=== PATIENT | female | born 1960 | race Caucasian/White ===

== ENCOUNTER 2021-07-10 00:25 | Inpatient (IN) ==
[2021-07-10] MEDS ORDERED: 0.9 % SODIUM CHLORIDE 500 ML IV ONE (01:25)
[2021-07-10 01:48] LABS: Basophils # (Auto) 0.05 K/mcL (0.00-0.30); Eosinophils # (Auto) 0.15 K/mcL (0.00-0.70); Eosinophils % (Auto) 3.1 % (0.0-7.0); Hematocrit 37.9 % (34.1-44.9); Hemoglobin 13.1 g/dL (11.2-15.7); Lymphocytes # (Auto) 1.72 K/mcL (1.50-4.80); Lymphocytes % (Auto) 35.8 % (15.5-49.0); Mean Cell Volume 107.1 fL (80.0-100.0); Mean Corpuscular HGB Conc 34.6 g/dL (31.0-36.0); Monocytes % (Auto) 12.5 % (1.0-12.0); Neutrophils % (Auto) 47.6 % (38.0-78.0); Platelet Count 305 K/mcL (140-440); RBC 3.54 M/mcL (3.59-5.38); Red Cell Distribution Width 16.5 % (11.5-14.5); WBC 4.8 K/mcL (4.5-11.0)
[2021-07-10 03:07] LABS: Alcohol,Blood 0.238 gm/dL (<0.010)
[2021-07-10 03:08] LABS: Partial Thromboplastin Time 25.7 sec (20.0-37.0); Prothrombin Time 13.4 sec (11.9-14.5)
[2021-07-10 03:11] LABS: ALT/SGPT 35 U/L (<40); AST/SGOT 39 U/L (<32); Albumin 3.7 gm/dL (3.2-5.2); Albumin/Globulin Ratio 1.4 (1.0-2.3); Alkaline Phosphatase 191 U/L (39-117); Bilirubin,Total 0.2 mg/dL (0.1-1.0); Blood Urea Nitrogen 4 mg/dL (6-20); Calcium 8.9 mg/dL (8.6-10.4); Carbon Dioxide 25 mmol/L (22-30); Chloride 98 mmol/L (96-108); Globulin 2.7 gm/dL (2.2-3.7); Glomerular Filtration Rate 99; Glucose 106 mg/dL (70-105)
[2021-07-10] MEDS ORDERED: HYDROmorphone 0.5 MG/0.5 ML SYRINGE IV ONE (03:45)
--- NOTE | 2021-07-10 05:39 | Emergency Department Note ---
HPI General Chief complaint: Fall Stated complaint: fall Time Seen by Provider: 07/10/21 00:39 Source: patient Mode of arrival: ambulatory Limitations: no limitations History of Present Illness HPI Narrative: 61-year-old female who does have a history of metastatic lung cancer on Keytruda no blood thinners presents with fall while outside landing on her right hip. Did hit the back of her head however no loss of consciousness. 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 Denies headache visual changes dizziness. No neck low back pain. No numbness tingling focal weakness. No chest pain shortness of breath nausea vomiting abdominal pain. Has been drinking alcohol approximately 4 shots of vodka. Obvious deformity of the right hip shortening externally rotated. Friend is at bedside Related Data Home Medications Medication Instructions Recorded Confirmed albuterol sulfate 90 mcg/actuation 2 puff INHALATION Q4H PRN g 01/17/1912/29 aerosol inhaler (Ventolin HFA) acetaminophen 500 mg tablet 500 mg PO Q6H PRN 07/26/20 01/11/21 (Tylenol Extra Strength) omeprazole 20 mg capsule,delayed 20 mg PO BID 07/26/20 01/11/21 release ondansetron 8 mg disintegrating 8 mg PO Q8H 07/26/20 01/11/21 tablet pembrolizumab 50 mg intravenous 200 mg IV Q3W 11/22/20 01/11/21 solution Previous Rx's Medication Instructions Recorded hydrocodone 5 mg-acetaminophen 325 1 - 2 tab PO BID PRN #60 tab 11/22/20 mg tablet metoprolol succinate 25 mg 25 mg PO QDAY #90 tab 01/11/21 tablet,extended release 24 hr duloxetine 60 mg capsule,delayed 60 mg PO QDAY #90 cap 07/04/21 release Allergies Allergy/AdvReac Type Severity Reaction Status Date / Time codeine Allergy Unknown Unknown Verified 07/10/21 00:32 Review of Systems ROS ROS Narrative: 10 point review of system is otherwise negative except as mentioned in HPI. PFSH Narrative Patient History Narrative: Narrative: Medical/Surgical/Family History All Active Problems (Updated 01/13/21 @ 08:51 by JERICHO Barron) Sinus tachycardia (Acute) Back pain (Acute) History of lobectomy of lung (Chronic) History of breast biopsy (Chronic) Lung cancer (Chronic) Headache (Chronic) Fatigue (Chronic) Hypertension (Chronic) Smoker (Chronic) GERD (gastroesophageal reflux disease) (Chronic) Adenocarcinoma, lung (Chronic) Hyperlipidemia (Chronic) Postmenopausal (Chronic) Hemangioma (Chronic) Alcohol consumption heavy (Chronic) Mass (Chronic) Atherosclerosis of coronary artery (Chronic) COPD (chronic obstructive pulmonary disease) (Chronic) Medical History Adenocarcinoma, lung Alcohol consumption heavy Atherosclerosis of coronary artery COPD (chronic obstructive pulmonary disease) Fatigue GERD (gastroesophageal reflux disease) Headache Heart palpitations Hemangioma Hyperlipidemia Hypertension 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 Grandmother Pancreatic cancer Maternal Grandfather Heart disease Maternal Social History Smoking Status: Current every day smoker Alcohol Intake Frequency: a few times a week Substance Use: does not use Exam Narrative Narrative: (Please note that portions of this note may have been completed with a voice recognition program. Efforts were made to edit the dictations but occasionally words are mis-transcribed) CONSTITUTIONAL: thin adult female weight 100 pound. Resting comfortably. Not in acute distress. Non toxic. Awake alert and oriented x3. Cooperative, follows commands. HEAD: Normocephalic. Atraumatic. EYES: EOMI. PERRL ENT: No drooling stridor. MM dry. Angioma of the left lip lower lip and left tongue NECK: Supple. Full range of motion. Trachea midline CARDIOVASCULAR: Adequate peripheral perfusion. S1-S2. Regular rate and rhythm. No murmurs rubs gallops. No JVD. No lower extremity edema. +2 radial pulses bilaterally. PULMONARY: Nonlabored. Speaking full sentences. Clear to auscultation bilaterally. No rhonchi wheeze or crackles. No chest wall tenderness crepitus ABDOMINAL: Soft. Nondistended. Nontender. Positive bowel sounds. EXTREMITIES: Obvious deformity of the right hip slightly shortened externally rotated. +2 femoral DP pulses bilaterally moves all 4 extremities with good strength and tone. SKIN: Warm and dry. No rash. No petechiae. NEUROLOGY: Sensation is intact. No gross focal deficits. GCS of 15 General Limitations: no limitations Course Vital Signs Vital signs: Vital Signs Temperature 36.6 C 07/10/21 00:26 Pulse Rate 80 07/10/21 00:26 Respiratory Rate 18 07/10/21 00:26 Blood Pressure 140/91 07/10/21 00:26 Pulse Oximetry (%) 100 07/10/21 00:26 Temperature 36.6 C 07/10/21 00:26 Pulse Rate 97 H 07/10/21 05:42 Respiratory Rate 16 07/10/21 03:35 Blood Pressure 139/82 07/10/21 06:31 Pulse Oximetry (%) 97 07/10/21 05:42 MDM MDM Narrative Medical decision making narrative: Differential diagnosis includes fracture-dislocation neurovascular tendon injury etc. X-rays were immediately obtained at bedside. Pelvic right hip x-ray does show a right intertrochanteric fracture. And so x-ray of the femur knee was obtained negative for acute fracture. NPO. IV pain control. Church catheter. Preop labs chest x-ray EKG were obtained. CT head C-spine secondary to the fall EtOH and brain mets was obtained. And per V rad negative for acute traumatic injury. Twelve-lead EKG per ED MD interpretation does show normal sinus rhythm at 90 bpm. Normal axis. No ST elevations or depressions. No T wave abnormalities. No ectopy. Normal intervals. No old EKG. Chest x-ray per ED MD interpretation shows no acute process, lesion noted in the right medial upper lobe. Labs unremarkable except for an alcohol level of 238. Chronically elevated LFTs. Updated patient and family at bedside and results clinical impressions treatment plan. Will admit questions have been answered at length agreeable. I did speak to orthopedics in the morning at 5:[address] Weaver. Agreeable to consult. Dr. Multani has been paged. Was given report. Secondary to the complex nature of patient's past medical history, he will speak to the anesthesiologist and confirm that they are comfortable managing this patient in the OR. I did speak to Dr. Weaver again and he will evaluate the patient in the emergency room and discuss plan with Dr. Multani. If it is deemed that the patient requires higher level of care oncoming physician will facilitate transfer Final impressions: 1. Acute right intertrochanteric fracture 2. Alcohol intoxication 3. Known metastatic lung cancer on Keytruda Dispo: admit condition:fair Lab Data Result diagrams: 07/10/21 00:50 07/10/21 00:50 Labs: Lab Results 07/10/21 07/10/21 07/10/21 Range/Units 00:50 00:50 00:50 WBC 4.8 (4.5-11.0) K/mcL RBC 3.54 L (3.59-5.38) M/mcL Hgb 13.1 (11.2-15.7) g/dL Hct 37.9 (34.1-44.9) % MCV 107.1 H (80.0-100.0) fL MCH 37.0 H (26.0-34.0) pg MCHC 34.6 (31.0-36.0) g/dL RDW 16.5 H (11.5-14.5) % Plt Count 305 (140-440) K/mcL MPV 10.0 (7.4-10.4) fL Neut % (Auto) 47.6 (38.0-78.0) % Lymph % (Auto) 35.8 (15.5-49.0) % [place] % (Auto) 12.5 H (1.0-12.0) % Eos % (Auto) 3.1 (0.0-7.0) % Baso % (Auto) 1.0 (0.0-2.0) % Lymph # (Auto) 1.72 (1.50-4.80) K/mcL [place] # (Auto) 0.60 (0.10-0.90) K/mcL Eos # (Auto) 0.15 (0.00-0.70) K/mcL Baso # (Auto) 0.05 (0.00-0.30) K/mcL Absolute Neutrophils 2.29 (1.80-8.00) K/mcL PT 13.4 (11.9-14.5) sec INR 1.0 (0.9-1.1) APTT 25.7 (20.0-37.0) sec Sodium 135 (133-145) mmol/L Potassium 3.6 (3.3-5.1) mmol/L Chloride 98 (96-108) mmol/L Carbon Dioxide 25 (22-30) mmol/L Anion Gap 12.0 (8.0-16.0) BUN 4 L (6-20) mg/dL Creatinine 0.6 (0.6-1.1) mg/dL GFR Calculation 99 Glucose 106 H (70-105) mg/dL Calcium 8.9 (8.6-10.4) mg/dL Magnesium 1.6 (1.6-2.5) mg/dL Total Bilirubin 0.2 (0.1-1.0) mg/dL AST 39 H (<32) U/L ALT 35 (<40) U/L Alkaline Phosphatase 191 H (39-117) U/L Total Protein 6.4 (5.9-8.4) gm/dL Albumin 3.7 (3.2-5.2) gm/dL Globulin 2.7 (2.2-3.7) gm/dL Albumin/Globulin Ratio 1.4 (1.0-2.3) Ethyl Alcohol (<0.010) gm/dL 07/10/21 Range/Units 00:50 WBC (4.5-11.0) K/mcL RBC (3.59-5.38) M/mcL Hgb (11.2-15.7) g/dL Hct (34.1-44.9) % MCV (80.0-100.0) fL MCH (26.0-34.0) pg MCHC (31.0-36.0) g/dL RDW (11.5-14.5) % Plt Count (140-440) K/mcL MPV (7.4-10.4) fL Neut % (Auto) (38.0-78.0) % Lymph % (Auto) (15.5-49.0) % [place] % (Auto) (1.0-12.0) % Eos % (Auto) (0.0-7.0) % Baso % (Auto) (0.0-2.0) % Lymph # (Auto) (1.50-4.80) K/mcL [place] # (Auto) (0.10-0.90) K/mcL Eos # (Auto) (0.00-0.70) K/mcL Baso # (Auto) (0.00-0.30) K/mcL Absolute Neutrophils (1.80-8.00) K/mcL PT (11.9-14.5) sec INR (0.9-1.1) APTT (20.0-37.0) sec Sodium (133-145) mmol/L Potassium (3.3-5.1) mmol/L Chloride (96-108) mmol/L Carbon Dioxide (22-30) mmol/L Anion Gap (8.0-16.0) BUN (6-20) mg/dL Creatinine (0.6-1.1) mg/dL GFR Calculation Glucose (70-105) mg/dL Calcium (8.6-10.4) mg/dL Magnesium (1.6-2.5) mg/dL Total Bilirubin (0.1-1.0) mg/dL AST (<32) U/L ALT (<40) U/L Alkaline Phosphatase (39-117) U/L Total Protein (5.9-8.4) gm/dL Albumin (3.2-5.2) gm/dL Globulin (2.2-3.7) gm/dL Albumin/Globulin Ratio (1.0-2.3) Ethyl Alcohol 0.238 H (<0.010) gm/dL ED POC Tests ED POC Tests: JOSI - SARS Antigen Negative Discharge Plan Patient/Caregiver Discharge Instructions Pt seen by SENIOR COMPLIANCE OFFICER/PA only: No Patient Disposition: Xfer As Inpt ([facility]) Condition: Fair Follow up with: Cecilia Calderon ARNP [Primary Care Provider] - Prescriptions: No Action omeprazole 20 mg capsule,delayed release(DR/EC) 20 mg PO BID 0RF acetaminophen [Tylenol Extra Strength] 500 mg tablet 500 mg PO Q6H PRN0RF ondansetron 8 mg tablet,disintegrating 8 mg PO Q8H 0RF duloxetine 60 mg capsule,delayed release(DR/EC) 60 mg PO QDAY Qty: 90 1RF albuterol sulfate [Ventolin HFA] 90 mcg/actuation HFA aerosol inhaler 2 puff INHALATION Q4H PRN0RF metoprolol succinate 25 mg tablet extended release 24 hr 25 mg PO QDAY Qty: 90 1RF pembrolizumab 50 mg recon soln 200 mg IV Q3W 0RF Rx Instructions: administer over 30 mins hydrocodone-acetaminophen 5-325 mg tablet 1 - 2 tab PO BID PRN (Reason: pain) Qty: 60 0RF
--- NOTE | 2021-07-10 06:19 | XRay Report ---
CLINICAL INFORMATION: Trauma COMPARISON: None. FINDINGS: Patellofemoral and tibiofemoral joint spaces show mild degeneration. No effusions are present. There are no fractures or other osseous abnormalities. The soft tissues are normal. IMPRESSION: Mild degeneration. No fracture Interpreted and Authenticated by: Juan Jose Olivia 07/10/21
--- NOTE | 2021-07-10 06:24 | XRay Report ---
CLINICAL INFORMATION: Trauma COMPARISON: None. FINDINGS: Sacroiliac and hip joints are normal in width and alignment without arthritic change. Mildly comminuted acute right intertrochanteric fracture appreciated with moderate coxa vera angulation and mild impaction. Mild soft tissue swelling over the fracture site noted. IMPRESSION: Mildly comminuted acute right intratrochanteric fracture with coxa vera angulation Interpreted and Authenticated by: Juan Jose Olivia 07/10/21
--- NOTE | 2021-07-10 06:30 | XRay Report ---
CLINICAL INFORMATION: Cough COMPARISON: 04/05/[address] plain film. Recent chest CT 06/27/2021 TECHNIQUE: Portable FINDINGS: The heart size, mediastinum and pulmonary vessels are unremarkable. 20 mm cavitary lesion in the right suprahilar region, described on recent chest CT, is unchanged.. It is most likely fibrosis. Minor fibrosis left lateral base unchanged.. There are no effusions. The bones and soft tissues are within normal limits. IMPRESSION: No acute disease. 20 mm irregular cavity, in the suprahilar right upper lobe, is unchanged from the most recent chest CT just two weeks ago. This could potentially represent recurrent malignancy. PET/CT was recommended for additional evaluation at that time. Interpreted and Authenticated by: Juan Jose Olivia 07/10/21
--- NOTE | 2021-07-10 06:38 | Cat Scan Report ---
CLINICAL INFORMATION: Trauma. History of alcohol use. COMPARISON: Brain MRI two weeks prior: 06/19/2021 TECHNIQUE: 2.5 mm helical slices were obtained in the skull base to vertex. Following reconstruction, axial reformatted images were reviewed at bone and parenchymal windows. The exam was performed using radiation dose optimization techniques including, but not limited to, automated exposure control, adjustment of the mA and/or kV according to patient size and use of iterative reconstruction technique. FINDINGS: The ventricles, sulci, fissures, and cisterns are symmetrically enlarged compatible with mild age-related atrophy. No extra-axial fluid collections are identified. Mild patchy chronic ischemic changes, in the deep cerebral white matter, are more than expected for age. There is no hemorrhage, mass effect, or edema. Bone windows show no osseous abnormality. IMPRESSION: Mild atrophy and chronic ischemic changes in the deep cerebral white-more than expected for age. No acute findings. Interpreted and Authenticated by: Juan Jose Olivia 07/10/21
[2021-07-10] MEDS ORDERED: HYDROmorphone 0.5 MG/0.5 ML SYRINGE IV PRN ×3 (07:01→12:27)
--- NOTE | 2021-07-10 07:14 | Cat Scan Report ---
CLINICAL INFORMATION: Trauma. History of lung cancer COMPARISON: None. TECHNIQUE: 0.625 mm helical slices were obtained from the skull base through the superior T2 end plate, and following reconstruction, 2.5 mm sagittal, coronal and axial reformations were then processed. The exam was reviewed at bone and soft tissue windows. The exam was performed using radiation dose optimization techniques including, but not limited to, automated exposure control, adjustment of the mA and/or kV according to patient size and use of iterative reconstruction technique. FINDINGS: Sagittal reformatted images show the cervical spine is anatomically aligned. There is no fracture, metastases or other osseous abnormality. The cervical cord is normal in contour and caliber without hemorrhage or other abnormality. Images through the lung again show a 2.1 cm cavity in the right upper lobe with mild wall thickening and stellate surrounding fibrosis. It is more likely benign fibrosis rather than recurrent lung carcinoma. There is also scattered interstitial fibrosis in the paramediastinal right apex and mild centrilobular emphysema changes. A 9 mm low-attenuation lesion in the right thyroid lobe is likely a colloid cyst. At C2-3, and C3-4, small broad central disc protrusion mildly impinges the anterior thecal sac. At C4-5, moderate broad disc protrusion with left-sided asymmetry narrows the left lateral recess. This may impinge the exiting left C5 nerve root. Mild central canal narrowing At C5-6, large broad disc spur complex results in severe central canal, moderate left and mild right IV foraminal narrowing. There may be impingement of the exiting left C6 nerve root The C6-7 and C7-T1 disc levels are normal IMPRESSION: No fracture or posttraumatic change. Multilevel degeneration 2.1 cm cavity in the right upper lobe with a thin wall but spiculated margins. While this may represent recurrent malignancy, is more likely benign fibrosis. CT PET recommended. Interpreted and Authenticated by: Juan Jose Olivia 07/10/21
--- NOTE | 2021-07-10 07:16 | Emergency Department Note ---
HPI General Chief complaint: Fall Stated complaint: fall Time Seen by Provider: 07/10/21 00:39 Source: patient Mode of arrival: ambulatory Limitations: no limitations History of Present Illness HPI Narrative: This patient was signed out to me at shift change by Dr. Ileana Grier. Please see her documentation for complete details of the history, physical exam, assessment and plan. Narrative: Related Data Home Medications Medication Instructions Recorded Confirmed albuterol sulfate 90 mcg/actuation 2 puff INHALATION Q4H PRN g 01/17/1912/29 aerosol inhaler (Ventolin HFA) acetaminophen 500 mg tablet 500 mg PO Q6H PRN 07/26/20 01/11/21 (Tylenol Extra Strength) omeprazole 20 mg capsule,delayed 20 mg PO BID 07/26/20 01/11/21 release ondansetron 8 mg disintegrating 8 mg PO Q8H 07/26/20 01/11/21 tablet pembrolizumab 50 mg intravenous 200 mg IV Q3W 11/22/20 01/11/21 solution Previous Rx's Medication Instructions Recorded hydrocodone 5 mg-acetaminophen 325 1 - 2 tab PO BID PRN #60 tab 11/22/20 mg tablet metoprolol succinate 25 mg 25 mg PO QDAY #90 tab 01/11/21 tablet,extended release 24 hr duloxetine 60 mg capsule,delayed 60 mg PO QDAY #90 cap 07/04/21 release Allergies Allergy/AdvReac Type Severity Reaction Status Date / Time codeine Allergy Unknown Unknown Verified 07/10/21 00:32 Review of Systems ROS ROS Narrative: Narrative: All systems ED: reviewed and negative except as stated. [facility] Narrative Patient History Narrative: Narrative: Medical/Surgical/Family History All Active Problems (Updated 07/10/21 @ 07:20 by Westley Waite DO) Closed fracture of right hip (Acute) Sinus tachycardia (Acute) Back pain (Acute) History of lobectomy of lung (Chronic) History of breast biopsy (Chronic) Lung cancer (Chronic) Headache (Chronic) Fatigue (Chronic) Hypertension (Chronic) Smoker (Chronic) GERD (gastroesophageal reflux disease) (Chronic) Adenocarcinoma, lung (Chronic) Hyperlipidemia (Chronic) Postmenopausal (Chronic) Hemangioma (Chronic) Alcohol consumption heavy (Chronic) Mass (Chronic) Atherosclerosis of coronary artery (Chronic) COPD (chronic obstructive pulmonary disease) (Chronic) Medical History Adenocarcinoma, lung Alcohol consumption heavy Atherosclerosis of coronary artery COPD (chronic obstructive pulmonary disease) Fatigue GERD (gastroesophageal reflux disease) Headache Heart palpitations Hemangioma Hyperlipidemia Hypertension 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 Grandmother Pancreatic cancer Maternal Grandfather Heart disease Maternal Social History Smoking Status: Current every day smoker Alcohol Intake Frequency: a few times a week Substance Use: does not use Exam Narrative Narrative: Narrative:This patient was signed out to me at shift change by Dr. Ileana Grier. Please see her documentation for complete details of the history, physical exam, assessment and plan. General Limitations: no limitations Course Course Course Narrative: This patient was signed out to me at shift change by Dr. Ileana Grier. Please see her documentation for complete details of the history, physical exam, assessment and plan. Vital Signs Vital signs: Vital Signs Temperature 97.9 F 07/10/21 00:26 Pulse Rate 80 07/10/21 00:26 Respiratory Rate 18 07/10/21 00:26 Blood Pressure 140/91 07/10/21 00:26 Pulse Oximetry (%) 100 07/10/21 00:26 Temperature 97.9 F 07/10/21 00:26 Pulse Rate 97 H 07/10/21 05:42 Respiratory Rate 16 07/10/21 03:35 Blood Pressure 142/93 07/10/21 07:01 Pulse Oximetry (%) 97 07/10/21 05:42 MDM MDM Narrative Medical decision making narrative: Narrative:This patient was signed out to me at shift change by Dr. Ileana Grier. Please see her documentation for complete details of the history, physical exam, assessment and plan. Lab Data Result diagrams: 07/10/21 00:50 07/10/21 00:50 Labs: Lab Results 07/10/21 07/10/21 07/10/21 Range/Units 00:50 00:50 00:50 WBC 4.8 (4.5-11.0) K/mcL RBC 3.54 L (3.59-5.38) M/mcL Hgb 13.1 (11.2-15.7) g/dL Hct 37.9 (34.1-44.9) % MCV 107.1 H (80.0-100.0) fL MCH 37.0 H (26.0-34.0) pg MCHC 34.6 (31.0-36.0) g/dL RDW 16.5 H (11.5-14.5) % Plt Count 305 (140-440) K/mcL MPV 10.0 (7.4-10.4) fL Neut % (Auto) 47.6 (38.0-78.0) % Lymph % (Auto) 35.8 (15.5-49.0) % [place] % (Auto) 12.5 H (1.0-12.0) % Eos % (Auto) 3.1 (0.0-7.0) % Baso % (Auto) 1.0 (0.0-2.0) % Lymph # (Auto) 1.72 (1.50-4.80) K/mcL [place] # (Auto) 0.60 (0.10-0.90) K/mcL Eos # (Auto) 0.15 (0.00-0.70) K/mcL Baso # (Auto) 0.05 (0.00-0.30) K/mcL Absolute Neutrophils 2.29 (1.80-8.00) K/mcL PT 13.4 (11.9-14.5) sec INR 1.0 (0.9-1.1) APTT 25.7 (20.0-37.0) sec Sodium 135 (133-145) mmol/L Potassium 3.6 (3.3-5.1) mmol/L Chloride 98 (96-108) mmol/L Carbon Dioxide 25 (22-30) mmol/L Anion Gap 12.0 (8.0-16.0) BUN 4 L (6-20) mg/dL Creatinine 0.6 (0.6-1.1) mg/dL GFR Calculation 99 Glucose 106 H (70-105) mg/dL Calcium 8.9 (8.6-10.4) mg/dL Magnesium 1.6 (1.6-2.5) mg/dL Total Bilirubin 0.2 (0.1-1.0) mg/dL AST 39 H (<32) U/L ALT 35 (<40) U/L Alkaline Phosphatase 191 H (39-117) U/L Total Protein 6.4 (5.9-8.4) gm/dL Albumin 3.7 (3.2-5.2) gm/dL Globulin 2.7 (2.2-3.7) gm/dL Albumin/Globulin Ratio 1.4 (1.0-2.3) Ethyl Alcohol (<0.010) gm/dL 07/10/21 Range/Units 00:50 WBC (4.5-11.0) K/mcL RBC (3.59-5.38) M/mcL Hgb (11.2-15.7) g/dL Hct (34.1-44.9) % MCV (80.0-100.0) fL MCH (26.0-34.0) pg MCHC (31.0-36.0) g/dL RDW (11.5-14.5) % Plt Count (140-440) K/mcL MPV (7.4-10.4) fL Neut % (Auto) (38.0-78.0) % Lymph % (Auto) (15.5-49.0) % [place] % (Auto) (1.0-12.0) % Eos % (Auto) (0.0-7.0) % Baso % (Auto) (0.0-2.0) % Lymph # (Auto) (1.50-4.80) K/mcL [place] # (Auto) (0.10-0.90) K/mcL Eos # (Auto) (0.00-0.70) K/mcL Baso # (Auto) (0.00-0.30) K/mcL Absolute Neutrophils (1.80-8.00) K/mcL PT (11.9-14.5) sec INR (0.9-1.1) APTT (20.0-37.0) sec Sodium (133-145) mmol/L Potassium (3.3-5.1) mmol/L Chloride (96-108) mmol/L Carbon Dioxide (22-30) mmol/L Anion Gap (8.0-16.0) BUN (6-20) mg/dL Creatinine (0.6-1.1) mg/dL GFR Calculation Glucose (70-105) mg/dL Calcium (8.6-10.4) mg/dL Magnesium (1.6-2.5) mg/dL Total Bilirubin (0.1-1.0) mg/dL AST (<32) U/L ALT (<40) U/L Alkaline Phosphatase (39-117) U/L Total Protein (5.9-8.4) gm/dL Albumin (3.2-5.2) gm/dL Globulin (2.2-3.7) gm/dL Albumin/Globulin Ratio (1.0-2.3) Ethyl Alcohol 0.238 H (<0.010) gm/dL ED POC Tests ED POC Tests: JOSI - SARS Antigen Negative Discharge Plan Patient/Caregiver Discharge Instructions Pt seen by SENIOR RECRUITER/PA only: No Clinical Impression: Closed fracture of right hip Patient Disposition: Xfer As Inpt ([facility]) Condition: Fair Follow up with: Cecilia Calderon ARNP [Primary Care Provider] - Prescriptions: No Action omeprazole 20 mg capsule,delayed release(DR/EC) 20 mg PO BID 0RF acetaminophen [Tylenol Extra Strength] 500 mg tablet 500 mg PO Q6H PRN0RF ondansetron 8 mg tablet,disintegrating 8 mg PO Q8H 0RF duloxetine 60 mg capsule,delayed release(DR/EC) 60 mg PO QDAY Qty: 90 1RF albuterol sulfate [Ventolin HFA] 90 mcg/actuation HFA aerosol inhaler 2 puff INHALATION Q4H PRN0RF metoprolol succinate 25 mg tablet extended release 24 hr 25 mg PO QDAY Qty: 90 1RF pembrolizumab 50 mg recon soln 200 mg IV Q3W 0RF Rx Instructions: administer over 30 mins hydrocodone-acetaminophen 5-325 mg tablet 1 - 2 tab PO BID PRN (Reason: pain) Qty: 60 0RF
--- NOTE | 2021-07-10 08:48 | Internal Med History&Physical ---
HPI History of Present Illness Patient information: Note initiated : 07/10/21 at 8:41 am Service Date, if different from initiated Date: [] Patient: Lyndsay Gonzalez a 61 y/o F admitted on for fall. Chief Complaint: [] History of present illness: Ms. Gonzalez is a 61 year old female with a history of lung cancer status post chemotherapy and right bilobectomy complicated by metastasis to the brain, adrenal glands currently treated with palliative pembrolizumab, coronary artery disease, COPD, GERD, alcohol use disorder, tobacco use disorder who had a fall and suffered a right hip fracture. Hospital medicine has been consulted for admission, orthopedic surgery Dr. Weaver plans to proceed with surgical correction of the hip fracture. We discussed the usual clinical course for hip fracture with specific mention of her medical comorbidities that may complicate the hospitalization. Patient understands and wishes to proceed with surgery. We discussed CODE STATUS, the patient wishes to be DNR/DNI. Review of systems Constitutional: no fever, fatigue, or weight loss Eyes: no vision changes or pain Cardiovascular: no chest pain, no palpitations Respiratory: no cough or dyspnea Gastrointestinal: no abdominal pain, no nausea, vomiting, or diarrhea Genitourinary: no dysuria or difficulty voiding Musculoskeletal: Right hip pain following fall. Integumentary: no skin lesion or wound Neurological: no focal weakness or numbness Psychiatric: no anxiety or depression Physical exam Head: Atraumatic, normal inspection. Eyes: normal appearance, no scleral icterus. Neck: full ROM Respiratory: no respiratory distress. Cardiovascular: normal rate and rhythm, S1, S2. GI/Abdominal: soft, nontender, no guarding. Extremities: Right lower extremity externally rotated, shorter than left lower extremity consistent with right hip fracture. Neurological: CN II-XII intact, intact motor, intact sensation. Psychiatric: normal mood. Skin: warm, normal color PFSH PFSH All Active Problems (Updated 07/10/21 @ 07:20 by Westley Waite DO) Closed fracture of right hip (Acute) Sinus tachycardia (Acute) Back pain (Acute) History of lobectomy of lung (Chronic) History of breast biopsy (Chronic) Lung cancer (Chronic) Headache (Chronic) Fatigue (Chronic) Hypertension (Chronic) Smoker (Chronic) GERD (gastroesophageal reflux disease) (Chronic) Adenocarcinoma, lung (Chronic) Hyperlipidemia (Chronic) Postmenopausal (Chronic) Hemangioma (Chronic) Alcohol consumption heavy (Chronic) Mass (Chronic) Atherosclerosis of coronary artery (Chronic) COPD (chronic obstructive pulmonary disease) (Chronic) Medical History Adenocarcinoma, lung Alcohol consumption heavy Atherosclerosis of coronary artery COPD (chronic obstructive pulmonary disease) Fatigue GERD (gastroesophageal reflux disease) Headache Heart palpitations Hemangioma Hyperlipidemia Hypertension 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 activity: other frequency: 3-4 times per week alcohol intake frequency: a few times a week substance use type: does not use MEDS/ALLERGIES Home Medications and Allergies Home Medications Medication Instructions Recorded Confirmed Type albuterol sulfate 90 mcg/actuation 2 puff INHALATION Q4H PRN g 01/17/19 07/10/21 History aerosol inhaler (Ventolin HFA) acetaminophen 500 mg tablet 500 mg PO Q6H PRN 07/26/20 07/10/21 History (Tylenol Extra Strength) omeprazole 20 mg capsule,delayed 20 mg PO BID 07/26/20 07/10/21 History release ondansetron 8 mg disintegrating 8 mg PO Q8H 07/26/20 07/10/21 History tablet hydrocodone 5 mg-acetaminophen 325 1 - 2 tab PO BID PRN #60 tab 11/22/20 07/10/21 Rx mg tablet pembrolizumab 50 mg intravenous 200 mg IV Q3W 11/22/20 07/10/21 History solution metoprolol succinate 25 mg 25 mg PO QDAY #90 tab 01/11/21 07/10/21 Rx tablet,extended release 24 hr duloxetine 60 mg capsule,delayed 60 mg PO QDAY #90 cap 07/04/21 07/10/21 Rx release Allergies Allergy/AdvReac Type Severity Reaction Status Date / Time No Known Drug Allergies Allergy Unverified 07/10/21 07:23 EXAM Constitutional Vitals: Temp Pulse Resp BP Pulse Ox 97.9 F 97 H 16 147/84 97 07/10/21 00:26 07/10/21 05:42 07/10/21 03:35 07/10/21 08:31 07/10/21 05:42 DATA Data Completed and Pending Labs: Labs from last 24 hours 07/10/21 07/10/21 07/10/21 00:50 00:50 00:50 WBC RBC Hgb Hct MCV MCH MCHC RDW Plt Count MPV Neut % (Auto) Lymph % (Auto) [place] % (Auto) Eos % (Auto) Baso % (Auto) Lymph # (Auto) [place] # (Auto) Eos # (Auto) Baso # (Auto) Absolute Neutrophils PT 13.4 INR 1.0 APTT 25.7 Sodium 135 Potassium 3.6 Chloride 98 Carbon Dioxide 25 Anion Gap 12.0 BUN 4 L Creatinine 0.6 GFR Calculation 99 Glucose 106 H Calcium 8.9 Magnesium 1.6 Total Bilirubin 0.2 AST 39 H ALT 35 Alkaline Phosphatase 191 H Total Protein 6.4 Albumin 3.7 Globulin 2.7 Albumin/Globulin Ratio 1.4 Ethyl Alcohol 0.238 H 07/10/21 00:50 WBC 4.8 RBC 3.54 L Hgb 13.1 Hct 37.9 MCV 107.1 H MCH 37.0 H MCHC 34.6 RDW 16.5 H Plt Count 305 MPV 10.0 Neut % (Auto) 47.6 Lymph % (Auto) 35.8 [place] % (Auto) 12.5 H Eos % (Auto) 3.1 Baso % (Auto) 1.0 Lymph # (Auto) 1.72 [place] # (Auto) 0.60 Eos # (Auto) 0.15 Baso # (Auto) 0.05 Absolute Neutrophils 2.29 PT INR APTT Sodium Potassium Chloride Carbon Dioxide Anion Gap BUN Creatinine GFR Calculation Glucose Calcium Magnesium Total Bilirubin AST ALT Alkaline Phosphatase Total Protein Albumin Globulin Albumin/Globulin Ratio Ethyl Alcohol A/P Narrative A/P Narrative: Assessment:61 year old female with a history of lung cancer status post chemotherapy and right bilobectomy complicated by metastasis to the brain, adrenal glands currently treated with palliative pembrolizumab, coronary artery disease, COPD, GERD, alcohol use disorder, tobacco use disorder who had a fall and suffered a right intratrochanteric femur fracture. #Right intratrochanteric femur fracture #COPD, stable #Coronary artery disease, stable #Alcohol use disorder #Tobacco use disorder #GERD #History of lung cancer status post right bilobectomy on palliative pembrolizumab Plan -Admit for surgical correction of right hip fracture. -Analgesics as needed. -IV fluid. -CIWA scoring to monitor for alcohol withdrawal. -N.p.o. pending surgery. -Home medication reconciliation, resume important meds. -PT consult. -DVT prophylaxis: Per surgery. -CODE STATUS: DNR/DNI -Disposition: TBD, probably SNF for rehab unless the patient recovers faster than expected. The patient lives alone and has multiple comorbidities mentioned above. Time Spent With Patient Time: Total time spent is greater than 50% in coordination of care (as documented) at patient's floor/unit and/or counseling patient:
[2021-07-10] MEDS ORDERED: ceFAZolin 2 GM in DEXTROSE 5% IN WATER 50 ML IV SCH (09:00)
--- NOTE | 2021-07-10 09:29 | EKG ---
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 : 1960 Requested By: Ileana Grier Order Number: [id number] Reading MD: Yong Sandoval Measurements Intervals [place] Rate: 90 P: 82 TX: 167 QRS: 52 QRSD: 91 T: 62 QT: 377 QTc: 462 Interpretive Statements Sinus rhythm Probable left atrial enlargement Electronically Signed On 07-10-2021 9:29:09 PDT by Yong Sandoval /store/M0/[id number]/[email or web address]/[id number].pdf
[2021-07-10] MEDS ORDERED: MAGNESIUM SULFATE 2 GM/50 ML BAG IV ONE (09:30)
[2021-07-10] MEDS ORDERED: MIDAZOLAM 5 MG/5 ML VIAL ONE (09:30)
[2021-07-10] MEDS ORDERED: GLYCOPYRROLATE 0.2 MG/ML VIAL IV ONE (09:30)
[2021-07-10] MEDS ORDERED: DEXAMETHASONE 10 MG/ML VIAL ONE (09:30)
[2021-07-10] MEDS ORDERED: KETAMINE 50 MG/ML Syringe (ANEST) IV ONE (09:30)
[2021-07-10] MEDS ORDERED: ONDANSETRON 4 MG/2 ML VIAL ONE (09:30)
[2021-07-10] MEDS ORDERED: TRANEXAMIC ACID 1,000 MG/10 ML VIAL ONE (09:30)
[2021-07-10] MEDS ORDERED: LIDOCAINE HCL/PF 100 MG/5 ML SYRINGE IV ONE (09:30)
[2021-07-10] MEDS ORDERED: fentaNYL 100 MCG/2 ML VIAL IV ONE (09:30)
[2021-07-10] MEDS ORDERED: PHENYLephrine 1 MG/10 ML SYRINGE (ANEST) ONE (09:30)
[2021-07-10] MEDS ORDERED: PROPOFOL 200 MG/20 ML VIAL IV ONE (09:30)
[2021-07-10] MEDS ORDERED: HYDROmorphone 1 MG/ML SYRINGE ONE (09:30)
[2021-07-10] MEDS ORDERED: METHOCARBAMOL 1,000 MG/10 ML VIAL IV PRN (09:55)
[2021-07-10] MEDS ORDERED: BENZOCAINE/MENTHOL 1 LOZENGE PO PRN ×2 (09:55→10:33)
[2021-07-10] MEDS ORDERED: ONDANSETRON 4 MG/2 ML VIAL IV PRN ×2 (09:55→12:27)
[2021-07-10] MEDS ORDERED: IPRATROPIUM/ALBUTEROL 3 ML AMPUL.NEB NEB PRN ×2 (09:55→14:47)
[2021-07-10] MEDS ORDERED: LACTATED RINGERS 250 ML IV PRN (09:55)
[2021-07-10] MEDS ORDERED: fentaNYL 100 MCG/2 ML VIAL IV PRN (09:55)
[2021-07-10] MEDS ORDERED: NALOXONE HCL 0.4 MG/ML VIAL IV PRN (09:55)
[2021-07-10] MEDS ORDERED: MEPERIDINE 25 MG/ML VIAL IV PRN (09:55)
[2021-07-10] MEDS ORDERED: LABETALOL 5 MG/ML ML IV PRN (09:55)
[2021-07-10] MEDS ORDERED: ACETAMINOPHEN 1,000 MG/100 ML BAG IV ONE (09:55)
[2021-07-10] MEDS ORDERED: METOPROLOL TARTRATE 5 MG/5 ML VIAL IV PRN (09:55)
[2021-07-10] MEDS ORDERED: LACTATED RINGERS 1,000 ML IV SCH ×2 (10:00→12:27)
--- NOTE | 2021-07-10 10:26 | Brief Operative Note ---
Brief Operative Note Date of procedure: 07/10/21 Pre-op diagnosis: hip fracture R Post-op diagnosis: same Procedure: ORIF gamma Grafts/Implants: Yes Anesthesia: GETA Complications: none Surgeon: Fly Weaver Director Hematology: Quynh Watts Estimated blood loss (cc): 200
[2021-07-10] MEDS ORDERED: POLYETHYLENE GLYCOL 3350 17 GM PACKET PO PRN (10:33)
[2021-07-10] MEDS ORDERED: FLEETS ADULT ENEMA PR PRN (10:33)
[2021-07-10] MEDS ORDERED: BISACODYL 10 MG SUPP.RECT PR PRN (10:33)
[2021-07-10] MEDS ORDERED: MAGNESIUM HYDROXIDE 30 ML ORAL.SUSP PO PRN (10:33)
[2021-07-10] MEDS ORDERED: ACETAMINOPHEN 325 MG TABLET PO PRN (12:27)
[2021-07-10] MEDS ORDERED: NICOTINE POLACRILEX 2 MG GUM CHEW/PARK PRN (12:27)
[2021-07-10] MEDS ORDERED: HYDROcodone/APAP 5/325MG TABLET PO PRN (12:27)
[2021-07-10] MEDS ORDERED: LACTULOSE 20 GM/30 ML ORAL.SOL PO PRN (12:27)
[2021-07-10] MEDS ORDERED: DOCUSATE SODIUM 100 MG CAPSULE PO SCH (12:27)
[2021-07-10] MEDS ORDERED: SENNOSIDES 1 TABLET PO PRN (12:27)
[2021-07-10] MEDS: 0.9 % SODIUM CHLORIDE 10 ML SYRINGE IV SCH ×2 (12:33→21:43)
[2021-07-10 13:21] LABS: Basophils # (Auto) 0.03 K/mcL (0.00-0.30); Basophils % (Auto) 0.3 % (0.0-2.0); Eosinophils # (Auto) 0.04 K/mcL (0.00-0.70); Eosinophils % (Auto) 0.3 % (0.0-7.0); Hemoglobin 13.3 g/dL (11.2-15.7); Lymphocytes # (Auto) 0.43 K/mcL (1.50-4.80); Lymphocytes % (Auto) 3.7 % (15.5-49.0); Mean Platelet Volume 10.2 fL (7.4-10.4); Monocytes # (Auto) 0.26 K/mcL (0.10-0.90); Monocytes % (Auto) 2.2 % (1.0-12.0); Neutrophils % (Auto) 93.5 % (38.0-78.0); Platelet Count 293 K/mcL (140-440); RBC 3.52 M/mcL (3.59-5.38); Red Cell Distribution Width 16.2 % (11.5-14.5); WBC 11.8 K/mcL (4.5-11.0)
[2021-07-10] MEDS: NICOTINE 21 MG PATCH TOPICAL SCH (13:42)
--- NOTE | 2021-07-10 13:45 | XRay Report ---
CLINICAL INFORMATION: ORIF right intertrochanteric fracture COMPARISON: None. FINDINGS: Digital images from the OR show right intertrochanteric fracture has been reduced to anatomic alignment and now transfixed by gamma nail. Right hip normal with alignment without arthritic change. IMPRESSION: ORIF intertrochanteric fracture of the right hip in anatomic alignment. Total fluoroscopy time one minute Interpreted and Authenticated by: Juan Jose Olivia 07/10/21
[2021-07-10 14:02] LABS: ALT/SGPT 33 U/L (<40); AST/SGOT 33 U/L (<32); Albumin 3.4 gm/dL (3.2-5.2); Albumin/Globulin Ratio 1.3 (1.0-2.3); Alkaline Phosphatase 203 U/L (39-117); Bilirubin,Direct < 0.2 mg/dL (0-0.3); Bilirubin,Total 0.3 mg/dL (0.1-1.0); Blood Urea Nitrogen 4 mg/dL (6-20); Calcium 8.1 mg/dL (8.6-10.4); Carbon Dioxide 24 mmol/L (22-30); Chloride 95 mmol/L (96-108); Globulin 2.6 gm/dL (2.2-3.7); Glomerular Filtration Rate 106; Glucose 114 mg/dL (70-105); Lactate Dehydrogenase 240 U/L (135-225); Phosphorous 3.4 mg/dL (2.5-4.5); Triglycerides 98 mg/dL (<150)
--- NOTE | 2021-07-10 14:48 | Internal Med Progress Note ---
SUBJECTIVE Subjective Patient information: Note initiated : 07/10/21 at 2:41 pm Service Date, if different from initiated Date: [] Patient: Lyndsay Gonzalez a 61 y/o F admitted on 07/10/21 for fall. Chief Complaint: [] Interval history: History of present illness: Ms. Gonzalez is a 61 year old female with a history of lung cancer status post chemotherapy and right bilobectomy complicated by metastasis to the brain, adrenal glands currently treated with palliative pembrolizumab, coronary artery disease, COPD, GERD, alcohol use disorder, tobacco use disorder who had a fall and suffered a right hip fracture. Hospital medicine has been consulted for a dmission, orthopedic surgery Dr. Weaver plans to proceed with surgical correction of the hip fracture. We discussed the usual clinical course for hip fracture with specific mention of her medical comorbidities that may complicate the hospitalization. Patient understands and wishes to proceed with surgery. We discussed CODE STATUS, the patient wishes to be DNR/DNI. 07/11 Constitutional Vitals: Vital Signs Temp Pulse Resp BP Pulse Ox 97.7 F 99 H 10 L 117/82 93 07/10/21 12:15 07/10/21 14:10 07/10/21 14:10 07/10/21 14:00 07/10/21 14:10 Period Temp Pulse Resp BP Sys/Soria Pulse Ox Last 24 Hr 97.7 F-98.8 F 70-114 10-30 113-177/79-108 90-100 Intake and Output 07/10/21 07/10/21 07/10/21 05:59 13:59 21:59 Intake Total 650 Balance 650 Weight Intake & Output: Intake & Output 07/10/21 07/10/21 07/10/21 05:59 13:59 21:59 Intake Total 650 Balance 650 Weight Intake: IV 650 Sodium Chloride 0.9% 500 ml @ 500 Wide Open IV BOLUS ONE Rx#: [id number] Ancef 2 gm In Dextrose 5% in 50 Water 50 ml @ 100 mls/hr IV PREOP CARRIE Rx#:[id number] Other: Urine Appearance Clear Uretheral ([facility]) Urine Color Bright Yellow Uretheral (Church) Urine Odor Uretheral (Church) Exam: General: Alert, Awake, No acute Distress, obese Eyes/N/T: EOMI, Head/Neck: neck supple, CV: RRR, No murmurs, Pulm: Clear b/l, no wheezing/rhonchi/rales Abd: soft, nontender, +BS x4 Ext: no clubbing/cyanosis/edema Neuro: Alert, no focal deficits, moves all extremities, Skin: warm/dry OBJ DATA Labs CBC & Chem 7: 07/10/21 12:40 07/10/21 12:40 Labs: Abnormal Lab Results 07/10/21 07/10/21 07/10/21 12:40 12:40 00:50 WBC 11.8 H RBC 3.52 L MCV 108.0 H MCH 37.8 H RDW 16.2 H Neut % (Auto) 93.5 H Lymph % (Auto) 3.7 L [place] % (Auto) Lymph # (Auto) 0.43 L Absolute Neutrophils 11.01 H Sodium 132 L Chloride 95 L BUN 4 L Creatinine 0.5 L Glucose 114 H Calcium 8.1 L GGT 157 H AST 33 H Alkaline Phosphatase 203 H Lactate Dehydrogenase 240 H Ethyl Alcohol 0.238 H 07/10/21 07/10/21 00:50 00:50 WBC RBC 3.54 L MCV 107.1 H MCH 37.0 H RDW 16.5 H Neut % (Auto) Lymph % (Auto) [place] % (Auto) 12.5 H Lymph # (Auto) Absolute Neutrophils Sodium Chloride BUN 4 L Creatinine Glucose 106 H Calcium GGT AST 39 H Alkaline Phosphatase 191 H Lactate Dehydrogenase Ethyl Alcohol Meds: Medications Acetaminophen (Acetaminophen 325 Mg Tablet) 650 mg PO Q6HP PRN; Protocol PRN Reason: Per Pain Protocol/Fever > 101 Hydrocodone Bitart/Acetaminophen (Hydrocodone/Apap 7.5/325mg Tablet) 0 tab PO Q4HP PRN; Protocol PRN Reason: Per Pain Protocol Aspirin (Aspirin 81 Mg Tab.Chew) 81 mg PO BID [facility] Bisacodyl (Bisacodyl 10 Mg Supp.Rect) 10 mg NV Q2-3DAYS PRN PRN Reason: Constipation Cefazolin Sodium (Cefazolin 1 Gm Vial) 2 gm IV Q8H [facility] Stop: 07/11/21 02:01 Docusate Sodium (Docusate Sodium 100 Mg Capsule) 100 mg PO BID [facility] Hydromorphone HCl (Hydromorphone 0.5 Mg/0.5 Ml Syringe) 0.5 mg IV Q2HP PRN; Protocol PRN Reason: Per Pain Protocol Lactated Ringer's (Lactated Ringers) 1,000 mls @ 75 mls/hr IV .[id number] [facility] Last Admin: 07/10/21 12:32 Dose: 75 mls/hr Documented by: Lactulose (Lactulose 20 Gm/30 Ml Oral.Mónica) 10 gm PO DAILYP PRN PRN Reason: Constipation Magnesium Hydroxide (Magnesium Hydroxide 30 Ml Oral.Susp) 30 ml PO BIDP PRN PRN Reason: Constipation Methocarbamol (Methocarbamol 750 Mg Tablet) 750 mg PO Q6HP PRN PRN Reason: Muscle Spasm Nicotine (Nicotine 21 Mg Patch) 21 mg TOPICAL DAILY@1000 [facility] Last Admin: 07/10/21 13:42 Dose: 21 mg Documented by: Nicotine Polacrilex (Nicotine Polacrilex 2 Mg Gum) 2 mg CHEW/PARK Q4HP PRN PRN Reason: nicotine withdrawal Ondansetron HCl (Ondansetron 4 Mg/2 Ml Vial) 4 mg IV Q4HP PRN; Protocol PRN Reason: Nausea And Vomiting Polyethylene Glycol (Polyethylene Glycol 3350 17 Gm Packet) 17 gm PO DAILYP PRN PRN Reason: Constipation Senna (Sennosides 1 Tablet) 2 tab PO HS [facility] Sodium Biphosphate/Sodium Phosphate (Fleets Adult Enema) 1 dose NV Q3-4DAYS PRN PRN Reason: Constipation Sodium Chloride (0.9 % Sodium Chloride 10 Ml Syringe) 10 ml IV Q8 [facility] Last Admin: 07/10/21 12:33 Dose: 10 ml Documented by: Throat Lozenges (Benzocaine/Menthol 1 Lozenge) 1 lozenge PO PRN PRN PRN Reason: Sore Throat A/P Narrative A/P Narrative: A: #Right intratrochanteric femur fracture: s/p ORIF (07/10) #COPD( ): stable #CAD: stable #Alcohol use disorder: #Tobacco use disorder: #GERD: #h/o Lung CA w/mets to brain s/p Right lobectomy on palliative pembrolizumab Plan: -Ortho following -Analgesics as needed -CIWA scoring to monitor for alcohol withdrawal. etoh with meal -Home medication reconciliation, resume important meds. -PT consult. -cont home BB -Smoking cessation counseling -ppx: Per surgery ASA bid / home ppi CODE STATUS: DNR/DNI Time Spent With Patient Time: Total time spent is greater than 50% in coordination of care (as documented) at patient's floor/unit and/or counseling patient:
[2021-07-10] MEDS: OMEPRAZOLE 20 MG CAPSULE PO SCH (17:04)
[2021-07-10] MEDS: HYDROCODONE/APAP 7.5/325MG TABLET PO PRN ×2 (17:05→21:42)
[2021-07-10] MEDS: ceFAZolin 1 GM VIAL IV SCH (17:05)
[2021-07-10] MEDS: ASPIRIN 81 MG TAB.CHEW PO SCH (21:42)
[2021-07-10] MEDS: SENNOSIDES 1 TABLET PO SCH (21:43)
[2021-07-10] MEDS: DOCUSATE SODIUM 100 MG CAPSULE PO SCH (21:43)
[2021-07-11] MEDS: ceFAZolin 1 GM VIAL IV SCH (02:22)
[2021-07-11] MEDS: METHOCARBAMOL 750 MG TABLET PO PRN ×3 (02:25→17:42)
[2021-07-11] MEDS: 0.9 % SODIUM CHLORIDE 10 ML SYRINGE IV SCH ×4 (05:58→20:13)
[2021-07-11 06:18] LABS: Basophils # (Auto) 0.01 K/mcL (0.00-0.30); Basophils % (Auto) 0.1 % (0.0-2.0); Eosinophils # (Auto) 0.01 K/mcL (0.00-0.70); Eosinophils % (Auto) 0.1 % (0.0-7.0); Hematocrit 31.7 % (34.1-44.9); Hemoglobin 10.7 g/dL (11.2-15.7); Lymphocytes # (Auto) 0.98 K/mcL (1.50-4.80); Lymphocytes % (Auto) 9.9 % (15.5-49.0); Mean Cell Volume 107.5 fL (80.0-100.0); Mean Corpuscular HGB Conc 33.8 g/dL (31.0-36.0); Mean Platelet Volume 10.6 fL (7.4-10.4); Monocytes # (Auto) 1.02 K/mcL (0.10-0.90); Monocytes % (Auto) 10.4 % (1.0-12.0); Neutrophils % (Auto) 79.5 % (38.0-78.0); Platelet Count 245 K/mcL (140-440); RBC 2.95 M/mcL (3.59-5.38); Red Cell Distribution Width 16.2 % (11.5-14.5); WBC 9.9 K/mcL (4.5-11.0)
[2021-07-11 06:29] LABS: Prothrombin Time 13.9 sec (11.9-14.5)
[2021-07-11 06:43] LABS: ALT/SGPT 23 U/L (<40); AST/SGOT 30 U/L (<32); Albumin 3.1 gm/dL (3.2-5.2); Albumin/Globulin Ratio 1.3 (1.0-2.3); Alkaline Phosphatase 169 U/L (39-117); Bilirubin,Direct < 0.2 mg/dL (0-0.3); Bilirubin,Total 0.4 mg/dL (0.1-1.0); Blood Urea Nitrogen 7 mg/dL (6-20); Calcium 8.4 mg/dL (8.6-10.4); Carbon Dioxide 28 mmol/L (22-30); Chloride 99 mmol/L (96-108); Globulin 2.4 gm/dL (2.2-3.7); Glomerular Filtration Rate 106; Glucose 108 mg/dL (70-105); Lactate Dehydrogenase 174 U/L (135-225); Phosphorous 2.6 mg/dL (2.5-4.5); Triglycerides 50 mg/dL (<150); Uric Acid 3.7 mg/dL (2.5-8.0)
[2021-07-11] MEDS: OMEPRAZOLE 20 MG CAPSULE PO SCH ×2 (07:07→17:38)
[2021-07-11] MEDS: HYDROCODONE/APAP 7.5/325MG TABLET PO PRN ×3 (07:10→19:47)
--- NOTE | 2021-07-11 07:13 | Consultation ---
DATE OF CONSULTATION: 07/10/2021 IDENTIFICATION: This is a 61-year-old female with chief complaint is that of right hip fracture. HISTORY: Ms Gonzalez sustained a fall last night. She had immediate pain, unable to bear weight. She was transported to [facility] where radiographs demonstrated a right intertrochanteric hip fracture, we were now called for further evaluation and management. The patient on presentation does complain of pain. She is awake and alert although she had been drinking with several shots of vodka. PAST MEDICAL HISTORY: Significant for metastatic lung cancer and COPD. PAST SURGICAL HISTORY: She had a previous lobectomy but otherwise not contributory to this present problem. MEDICATIONS: Include, 1. Albuterol. 2. Omeprazole. 3. Keytruda. ALLERGIES: CODEINE. REVIEW OF SYSTEMS: Generally, she has been healthy recently with no acute changes in past medical. PHYSICAL EXAMINATION: GENERAL: She is awake and alert. She is resting comfortably. HEAD: Atraumatic. EYES: Pupils are round and reactive. NECK: Supple without pain on range of motion. HEART: Regular. LUNGS: Clear. ABDOMEN: Benign. EXTREMITIES: Her right lower extremity is carefully positioned. Any motion does reproduce pain. She seems to be grossly without neurovascular deficit. IMAGING: Radiographs do demonstrate a fracture of the intertrochanteric region of right hip. IMPRESSION: Right hip fracture. PLAN: We will proceed with a reduction and internal fixation. The surgical risks, complications and limitations are discussed, she understands these well and wish to proceed. GDD:cande Job ID: [id number] Doc ID: [id number] Fly Weaver MD
--- NOTE | 2021-07-11 07:59 | Internal Med Progress Note ---
SUBJECTIVE Subjective Patient information: Note initiated : 07/11/21 at 7:57 am Service Date, if different from initiated Date: [] Patient: Lyndsay Gonzalez a 61 y/o F admitted on 07/10/21 for fall. Chief Complaint: [] Interval history: History of present illness: Ms. Gonzalez is a 61 year old female with a history of lung cancer status post chemotherapy and right bilobectomy complicated by metastasis to the brain, adrenal glands currently treated with palliative pembrolizumab, coronary artery disease, COPD, GERD, alcohol use disorder, tobacco use disorder who had a fall and suffered a right hip fracture. Hospital medicine has been consulted for a dmission, orthopedic surgery Dr. Weaver plans to proceed with surgical correction of the hip fracture. We discussed the usual clinical course for hip fracture with specific mention of her medical comorbidities that may complicate the hospitalization. Patient understands and wishes to proceed with surgery. We discussed CODE STATUS, the patient wishes to be DNR/DNI. 07/11 Poor sleep and headache but otherwise no new complaints overnight events. CIWA score quite low and patient did not want any alcohol with her dinner last night. Review of Systems: denies headache/fever/chills/nausea/vomiting/chest or abdominal pain/cough/dyspnea/diarrhea. Otherwise see above. Constitutional Vitals: Vital Signs Temp Pulse Resp BP Pulse Ox 97.5 F 105 H 18 161/87 94 07/11/21 04:00 07/11/21 06:00 07/11/21 06:00 07/11/21 06:00 07/11/21 06:00 Period Temp Pulse Resp BP Sys/Soria Pulse Ox Last 24 Hr 97.5 F-98.8 F 94-114 10-30 113-177/70-108 90-100 Intake and Output 07/10/21 07/11/21 07/11/21 21:59 05:59 13:59 Intake Total 1000 Output Total 575 850 Balance -575 150 Weight 44.86 kg Intake & Output: Intake & Output 07/10/21 07/11/21 07/11/21 21:59 05:59 13:59 Intake Total 1000 Output Total 575 850 Balance -575 150 Weight 44.86 kg Intake: IV 1000 Lactated Ringers 1,000 ml @ 75 1000 mls/hr IV .[id number] CARRIE Rx#: [id number] Output: Urine Catheter Amount 575 850 Other: Urine Appearance Clear Clear Urine Color Straw Dark Yellow Urine Odor Normal Exam: General: Alert, Awake, No acute Distress, obese Eyes/N/T: EOMI, Head/Neck: neck supple, CV: RRR, No murmurs, Pulm: Clear b/l, no wheezing/rhonchi/rales Abd: soft, nontender, +BS x4 Ext: no clubbing/cyanosis/edema Neuro: Alert, no focal deficits, moves all extremities, Skin: warm/dry OBJ DATA Labs CBC & Chem 7: 07/11/21 05:05 07/11/21 05:05 Labs: Abnormal Lab Results 07/11/21 07/11/21 07/10/21 05:05 05:05 12:40 WBC RBC 2.95 L Hgb 10.7 L Hct 31.7 L MCV 107.5 H MCH 36.3 H RDW 16.2 H MPV 10.6 H Neut % (Auto) 79.5 H Lymph % (Auto) 9.9 L Rankin % (Auto) Lymph # (Auto) 0.98 L Rankin # (Auto) 1.02 H Absolute Neutrophils Sodium 132 L Chloride 95 L BUN 4 L Creatinine 0.5 L 0.5 L Glucose 108 H 114 H Calcium 8.4 L 8.1 L GGT 123 H 157 H AST 33 H Alkaline Phosphatase 169 H 203 H Lactate Dehydrogenase 240 H Total Protein 5.5 L Albumin 3.1 L Ethyl Alcohol 07/10/21 07/10/21 07/10/21 12:40 00:50 00:50 WBC 11.8 H RBC 3.52 L Hgb Hct MCV 108.0 H MCH 37.8 H RDW 16.2 H MPV Neut % (Auto) 93.5 H Lymph % (Auto) 3.7 L Rankin % (Auto) Lymph # (Auto) 0.43 L Rankin # (Auto) Absolute Neutrophils 11.01 H Sodium Chloride BUN 4 L Creatinine Glucose 106 H Calcium GGT AST 39 H Alkaline Phosphatase 191 H Lactate Dehydrogenase Total Protein Albumin Ethyl Alcohol 0.238 H 07/10/21 00:50 WBC RBC 3.54 L Hgb Hct MCV 107.1 H MCH 37.0 H RDW 16.5 H MPV Neut % (Auto) Lymph % (Auto) Rankin % (Auto) 12.5 H Lymph # (Auto) Rankin # (Auto) Absolute Neutrophils Sodium Chloride BUN Creatinine Glucose Calcium GGT AST Alkaline Phosphatase Lactate Dehydrogenase Total Protein Albumin Ethyl Alcohol Meds: Medications Acetaminophen (Acetaminophen 325 Mg Tablet) 650 mg PO Q6HP PRN; Protocol PRN Reason: Per Pain Protocol/Fever > 101 Hydrocodone Bitart/Acetaminophen (Hydrocodone/Apap 7.5/325mg Tablet) 0 tab PO Q4HP PRN; Protocol PRN Reason: Per Pain Protocol Last Admin: 07/11/21 07:10 Dose: 1 tab Documented by: Albuterol/Ipratropium (Ipratropium/Albuterol 3 Ml Ampul.Neb) 3 ml NEB Q4HP PRN PRN Reason: Shortness Of Breath Aspirin (Aspirin 81 Mg Tab.Chew) 81 mg PO BID [facility] Last Admin: 07/10/21 21:42 Dose: 81 mg Documented by: Bisacodyl (Bisacodyl 10 Mg Supp.Rect) 10 mg AR Q2-3DAYS PRN PRN Reason: Constipation Docusate Sodium (Docusate Sodium 100 Mg Capsule) 100 mg PO BID [facility] Last Admin: 07/10/21 21:43 Dose: 100 mg Documented by: Duloxetine HCl (Duloxetine 30 Mg Capsule) 60 mg PO DAILY [facility] Hydromorphone HCl (Hydromorphone 0.5 Mg/0.5 Ml Syringe) 0.5 mg IV Q2HP PRN; Protocol PRN Reason: Per Pain Protocol Lactulose (Lactulose 20 Gm/30 Ml Oral.Mónica) 10 gm PO DAILYP PRN PRN Reason: Constipation Magnesium Hydroxide (Magnesium Hydroxide 30 Ml Oral.Susp) 30 ml PO BIDP PRN PRN Reason: Constipation Methocarbamol (Methocarbamol 750 Mg Tablet) 750 mg PO Q6HP PRN PRN Reason: Muscle Spasm Last Admin: 07/11/21 02:25 Dose: 750 mg Documented by: Metoprolol Succinate (Metoprolol Succinate 25 Mg Tab.Xl.24h) 25 mg PO QDAY [facility] Nicotine (Nicotine 21 Mg Patch) 21 mg TOPICAL DAILY@1000 [facility] Last Admin: 07/10/21 13:42 Dose: 21 mg Documented by: Nicotine Polacrilex (Nicotine Polacrilex 2 Mg Gum) 2 mg CHEW/PARK Q4HP PRN PRN Reason: nicotine withdrawal Omeprazole (Omeprazole 20 Mg Capsule) 20 mg PO BIDAC [facility] Last Admin: 07/11/21 07:07 Dose: 20 mg Documented by: Ondansetron HCl (Ondansetron 4 Mg/2 Ml Vial) 4 mg IV Q4HP PRN; Protocol PRN Reason: Nausea And Vomiting Polyethylene Glycol (Polyethylene Glycol 3350 17 Gm Packet) 17 gm PO DAILYP PRN PRN Reason: Constipation Senna (Sennosides 1 Tablet) 2 tab PO HS [facility] Last Admin: 07/10/21 21:43 Dose: 2 tab Documented by: Sodium Biphosphate/Sodium Phosphate (Fleets Adult Enema) 1 dose AR Q3-4DAYS PRN PRN Reason: Constipation Sodium Chloride (0.9 % Sodium Chloride 10 Ml Syringe) 10 ml IV Q8 [facility] Last Admin: 07/11/21 05:58 Dose: 10 ml Documented by: Throat Lozenges (Benzocaine/Menthol 1 Lozenge) 1 lozenge PO PRN PRN PRN Reason: Sore Throat A/P Narrative A/P Narrative: A: #Right intratrochanteric femur fracture: s/p ORIF (07/10) #COPD(not on home oxygen): stable #CAD: stable #Alcohol use disorder: #Tobacco use disorder: #GERD: #h/o Lung CA w/mets to brain s/p Right lobectomy on palliative pembrolizumab Plan: -Ortho following -Analgesics as needed -CIWA scoring to monitor for alcohol withdrawal. etoh with meal -PT consult. -cont home BB -Smoking cessation counseling -ppx: Per surgery ASA bid / home ppi CODE STATUS: DNR/DNI Time Spent With Patient Time: Total time spent is greater than 50% in coordination of care (as documented) at patient's floor/unit and/or counseling patient: QUALITY VTE Deep Vein Thrombosis/Pulmonary Embolism Present on Admission: No
[2021-07-11] MEDS: ASPIRIN 81 MG TAB.CHEW PO SCH ×2 (08:55→19:48)
[2021-07-11] MEDS: DULoxetine 30 MG CAPSULE PO SCH (08:55)
[2021-07-11] MEDS: METOPROLOL SUCCINATE 25 MG TAB.XL.24H PO SCH (08:55)
[2021-07-11] MEDS: DOCUSATE SODIUM 100 MG CAPSULE PO SCH ×2 (08:55→19:48)
[2021-07-11] MEDS: NICOTINE 21 MG PATCH TOPICAL SCH (09:45)
--- NOTE | 2021-07-11 12:10 | Orthopedic Progress Note ---
SUBJECTIVE Subjective Patient information: Note initiated : 07/11/21 at 12:08 pm Service Date, if different from initiated Date: [] Patient: Lyndsay Gonzalez 61 y/o F admitted on 07/10/21 for fall. Chief Complaint: [Pt is stable this morning on post operative day without any significant concerns or complaints. Patients vital signs have remained stable. Patients dressing is dry and is grossly intact from a neurovascular and motor standpoint. Patients 10 point ROS is otherwise negative. ] Constitutional Vitals: Vital Signs Temp Pulse Resp BP Pulse Ox 99.0 F 111 H 14 146/89 93 07/11/21 08:00 07/11/21 10:01 07/11/21 10:01 07/11/21 10:01 07/11/21 10:01 Period Temp Pulse Resp BP Sys/Soria Pulse Ox Last 24 Hr 97.5 F-99.0 F 94-113 10-20 113-161/70-106 90-97 Intake and Output 07/10/21 07/11/21 07/11/21 21:59 05:59 13:59 Intake Total 1000 360 Output Total 575 850 Balance -575 150 360 Weight 98 lb 14.4 oz Intake & Output: Intake & Output 07/10/21 07/11/21 07/11/21 21:59 05:59 13:59 Intake Total 1000 360 Output Total 575 850 Balance -575 150 360 Weight 98 lb 14.4 oz Intake: IV 1000 Lactated Ringers 1,000 ml @ 75 1000 mls/hr IV .[id number] [facility] Rx#: [id number] Oral 360 Output: Urine Catheter Amount 575 850 Other: Urine Appearance Clear Clear Urine Color Straw Dark Yellow Urine Odor Normal Extremities Exam Extremities exam: Present normal capillary refill, normal inspection, Foot pink and warm and neurovascular intact OBJ DATA Labs CBC & Chem 7: 07/11/21 05:05 07/11/21 05:05 Labs: Abnormal Lab Results 07/11/21 07/11/21 07/10/21 05:05 05:05 12:40 WBC RBC 2.95 L Hgb 10.7 L Hct 31.7 L MCV 107.5 H MCH 36.3 H RDW 16.2 H MPV 10.6 H Neut % (Auto) 79.5 H Lymph % (Auto) 9.[address] [place] % (Auto) Lymph # (Auto) 0.[address] [place] # (Auto) 1.02 H Absolute Neutrophils Sodium 132 L Chloride 95 L BUN 4 L Creatinine 0.5 L 0.5 L Glucose 108 H 114 H Calcium 8.4 L 8.1 L GGT 123 H 157 H AST 33 H Alkaline Phosphatase 169 H 203 H Lactate Dehydrogenase 240 H Total Protein 5.5 L Albumin 3.1 L Ethyl Alcohol 07/10/21 07/10/21 07/10/21 12:40 00:50 00:50 WBC 11.8 H RBC 3.52 L Hgb Hct MCV 108.0 H MCH 37.8 H RDW 16.2 H MPV Neut % (Auto) 93.5 H Lymph % (Auto) 3.[address] [place] % (Auto) Lymph # (Auto) 0.[address] [place] # (Auto) Absolute Neutrophils 11.01 H Sodium Chloride BUN 4 L Creatinine Glucose 106 H Calcium GGT AST 39 H Alkaline Phosphatase 191 H Lactate Dehydrogenase Total Protein Albumin Ethyl Alcohol 0.238 H 07/10/21 00:50 WBC RBC 3.54 L Hgb Hct MCV 107.1 H MCH 37.0 H RDW 16.5 H MPV Neut % (Auto) Lymph % (Auto) [place] % (Auto) 12.5 H Lymph # (Auto) [place] # (Auto) Absolute Neutrophils Sodium Chloride BUN Creatinine Glucose Calcium GGT AST Alkaline Phosphatase Lactate Dehydrogenase Total Protein Albumin Ethyl Alcohol Meds: Medications Acetaminophen (Acetaminophen 325 Mg Tablet) 650 mg PO Q6HP PRN; Protocol PRN Reason: Per Pain Protocol/Fever > 101 Last Admin: 07/11/21 11:25 Dose: 650 mg Documented by: Hydrocodone Bitart/Acetaminophen (Hydrocodone/Apap 7.5/325mg Tablet) 0 tab PO Q4HP PRN; Protocol PRN Reason: Per Pain Protocol Last Admin: 07/11/21 07:10 Dose: 1 tab Documented by: Albuterol/Ipratropium (Ipratropium/Albuterol 3 Ml Ampul.Neb) 3 ml NEB Q4HP PRN PRN Reason: Shortness Of Breath Aspirin (Aspirin 81 Mg Tab.Chew) 81 mg PO BID [facility] Last Admin: 07/11/21 08:55 Dose: 81 mg Documented by: Bisacodyl (Bisacodyl 10 Mg Supp.Rect) 10 mg [place] Q2-3DAYS PRN PRN Reason: Constipation Docusate Sodium (Docusate Sodium 100 Mg Capsule) 100 mg PO BID [facility] Last Admin: 07/11/21 08:55 Dose: 100 mg Documented by: Duloxetine HCl (Duloxetine 30 Mg Capsule) 60 mg PO DAILY [facility] Last Admin: 07/11/21 08:55 Dose: 60 mg Documented by: Hydromorphone HCl (Hydromorphone 0.5 Mg/0.5 Ml Syringe) 0.5 mg IV Q2HP PRN; Protocol PRN Reason: Per Pain Protocol Lactulose (Lactulose 20 Gm/30 Ml Oral.Mónica) 10 gm PO DAILYP PRN PRN Reason: Constipation Magnesium Hydroxide (Magnesium Hydroxide 30 Ml Oral.Susp) 30 ml PO BIDP PRN PRN Reason: Constipation Methocarbamol (Methocarbamol 750 Mg Tablet) 750 mg PO Q6HP PRN PRN Reason: Muscle Spasm Last Admin: 07/11/21 08:55 Dose: 750 mg Documented by: Metoprolol Succinate (Metoprolol Succinate 25 Mg Tab.Xl.24h) 25 mg PO QDAY [facility] Last Admin: 07/11/21 08:55 Dose: 25 mg Documented by: Nicotine (Nicotine 21 Mg Patch) 21 mg TOPICAL DAILY@1000 [facility] Last Admin: 07/11/21 09:45 Dose: 21 mg Documented by: Nicotine Polacrilex (Nicotine Polacrilex 2 Mg Gum) 2 mg CHEW/PARK Q4HP PRN PRN Reason: nicotine withdrawal Omeprazole (Omeprazole 20 Mg Capsule) 20 mg PO BIDAC [facility] Last Admin: 07/11/21 07:07 Dose: 20 mg Documented by: Ondansetron HCl (Ondansetron 4 Mg/2 Ml Vial) 4 mg IV Q4HP PRN; Protocol PRN Reason: Nausea And Vomiting Polyethylene Glycol (Polyethylene Glycol 3350 17 Gm Packet) 17 gm PO DAILYP PRN PRN Reason: Constipation Senna (Sennosides 1 Tablet) 2 tab PO HS [facility] Last Admin: 07/10/21 21:43 Dose: 2 tab Documented by: Sodium Biphosphate/Sodium Phosphate (Fleets Adult Enema) 1 dose MA Q3-4DAYS PRN PRN Reason: Constipation Sodium Chloride (0.9 % Sodium Chloride 10 Ml Syringe) 10 ml IV Q8 [facility] Last Admin: 07/11/21 05:58 Dose: 10 ml Documented by: Throat Lozenges (Benzocaine/Menthol 1 Lozenge) 1 lozenge PO PRN PRN PRN Reason: Sore Throat A/P Narrative A/P Narrative: 50% weight bearing status, mobilize per PT and all other orders per Dr Weaver. Time Spent With Patient Time: Total time spent is greater than 50% in coordination of care (as documented) at patient's floor/unit and/or counseling patient: Total time spent with greater than 50% in coordination of care (as documented) at patient's floor/unit and/or counseling patient:: less than 15 minutes
[2021-07-11] MEDS: SENNOSIDES 1 TABLET PO SCH (19:48)
[2021-07-11] MEDS ORDERED: LORazepam 2 MG/ML VIAL IV PRN (20:09)
[2021-07-11] MEDS ORDERED: chlordiazePOXIDE 25 MG CAPSULE PO PRN (20:09)
[2021-07-11] MEDS ORDERED: THIAMINE 100 MG in 0.9 % SODIUM CHLORIDE 50 ML IV ONE (20:10)
[2021-07-11] MEDS ORDERED: THIAMINE 100 MG/ML VIAL ONE (21:20)
[2021-07-11] MEDS: FOLIC ACID 1 MG TABLET PO SCH (21:54)
[2021-07-11] MEDS: MULTIVIT,THER IRON,CA,FA & MIN 1 TABLET PO SCH (21:54)
[2021-07-11] MEDS ORDERED: 0.9 % SODIUM CHLORIDE 10 ML SYRINGE IV SCH (22:00)
[2021-07-12] MEDS: 0.9 % SODIUM CHLORIDE 10 ML SYRINGE IV SCH ×4 (04:28→20:00)
[2021-07-12] MEDS: HYDROCODONE/APAP 7.5/325MG TABLET PO PRN ×2 (07:14→18:34)
[2021-07-12] MEDS: METHOCARBAMOL 750 MG TABLET PO PRN ×2 (07:14→18:34)
[2021-07-12] MEDS: OMEPRAZOLE 20 MG CAPSULE PO SCH ×2 (07:14→18:03)
--- NOTE | 2021-07-12 07:15 | Orthopedic Progress Note ---
SUBJECTIVE Subjective Patient information: Note initiated : 07/12/21 at 7:11 am Service Date, if different from initiated Date: [] Patient: Lyndsay Gonzalez 61 y/o F admitted on 07/10/21 for fall. Chief Complaint: [S/p ORIF of right intertrochanteric hip fx] Patient's pain is well-controlled. Her ambulation has been limited. She denies any lower extremity calf tenderness. Constitutional Vitals: Vital Signs Temp Pulse Resp BP Pulse Ox 98.9 F 106 H 18 127/83 96 07/12/21 03:16 07/12/21 03:16 07/12/21 03:16 07/12/21 03:16 07/12/21 03:16 Period Temp Pulse Resp BP Sys/Soria Pulse Ox Last 24 Hr 98.1 F-100 F 95-111 14-20 127-160/72-89 91-99 Intake and Output 07/11/21 07/12/21 07/12/21 21:59 05:59 13:59 Intake Total 376 Output Total 1450 1300 Balance -1450 -924 Weight 114 lb Intake & Output: Intake & Output 07/11/21 07/12/21 07/12/21 21:59 05:59 13:59 Intake Total 376 Output Total 1450 1300 Balance -1450 -924 Weight 114 lb Intake: IV 51 Vitamin B1 100 mg In Sodium 51 Chloride 0.9% 50 ml @ 50 mls/hr IV ONCE ONE Rx#:[id number] Oral 325 Output: Urine Catheter Amount 1450 1300 Other: Urine Appearance Clear Clear Urine Color Dark Yellow Bright Yellow Extremities Exam Extremities exam: Present calf tenderness (negative bilaterally), tenderness (Right lateral hip), Mariama's sign (negative bilaterally), Foot pink and warm and neurovascular intact Neurological Exam Neurological exam: Present alert and oriented X3 Psychiatric Psychiatric exam: Present normal affect and normal mood OBJ DATA Labs CBC & Chem 7: 07/11/21 05:05 07/11/21 05:05 Labs: Abnormal Lab Results 07/11/21 07/11/21 07/10/21 05:05 05:05 12:40 WBC RBC 2.95 L Hgb 10.7 L Hct 31.7 L MCV 107.5 H MCH 36.3 H RDW 16.2 H MPV 10.6 H Neut % (Auto) 79.5 H Lymph % (Auto) 9.9 L [place] % (Auto) Lymph # (Auto) 0.98 L [place] # (Auto) 1.02 H Absolute Neutrophils Sodium 132 L Chloride 95 L BUN 4 L Creatinine 0.5 L 0.5 L Glucose 108 H 114 H Calcium 8.4 L 8.1 L GGT 123 H 157 H AST 33 H Alkaline Phosphatase 169 H 203 H Lactate Dehydrogenase 240 H Total Protein 5.5 L Albumin 3.1 L Ethyl Alcohol 07/10/21 07/10/21 07/10/21 12:40 00:50 00:50 WBC 11.8 H RBC 3.52 L Hgb Hct MCV 108.0 H MCH 37.8 H RDW 16.2 H MPV Neut % (Auto) 93.5 H Lymph % (Auto) 3.7 L [place] % (Auto) Lymph # (Auto) 0.43 L [place] # (Auto) Absolute Neutrophils 11.01 H Sodium Chloride BUN 4 L Creatinine Glucose 106 H Calcium GGT AST 39 H Alkaline Phosphatase 191 H Lactate Dehydrogenase Total Protein Albumin Ethyl Alcohol 0.238 H 07/10/21 00:50 WBC RBC 3.54 L Hgb Hct MCV 107.1 H MCH 37.0 H RDW 16.5 H MPV Neut % (Auto) Lymph % (Auto) [place] % (Auto) 12.5 H Lymph # (Auto) [place] # (Auto) Absolute Neutrophils Sodium Chloride BUN Creatinine Glucose Calcium GGT AST Alkaline Phosphatase Lactate Dehydrogenase Total Protein Albumin Ethyl Alcohol Meds: Medications Acetaminophen (Acetaminophen 325 Mg Tablet) 650 mg PO Q6HP PRN; Protocol PRN Reason: Per Pain Protocol/Fever > 101 Last Admin: 07/11/21 11:25 Dose: 650 mg Documented by: Hydrocodone Bitart/Acetaminophen (Hydrocodone/Apap 7.5/325mg Tablet) 0 tab PO Q4HP PRN; Protocol PRN Reason: Per Pain Protocol Last Admin: 07/11/21 19:47 Dose: 2 tab Documented by: Albuterol/Ipratropium (Ipratropium/Albuterol 3 Ml Ampul.Neb) 3 ml NEB Q4HP PRN PRN Reason: Shortness Of Breath Aspirin (Aspirin 81 Mg Tab.Chew) 81 mg PO BID [facility] Last Admin: 07/11/21 19:48 Dose: 81 mg Documented by: Bisacodyl (Bisacodyl 10 Mg Supp.Rect) 10 mg [place] Q2-3DAYS PRN PRN Reason: Constipation Chlordiazepoxide HCl (Chlordiazepoxide 25 Mg Capsule) 50 mg PO Q4HP PRN PRN Reason: Alcohol Withdrawal Docusate Sodium (Docusate Sodium 100 Mg Capsule) 100 mg PO BID [facility] Last Admin: 07/11/21 19:48 Dose: Not Given Documented by: Duloxetine HCl (Duloxetine 30 Mg Capsule) 60 mg PO DAILY [facility] Last Admin: 07/11/21 08:55 Dose: 60 mg Documented by: Folic Acid (Folic Acid 1 Mg Tablet) 1 mg PO DAILY [facility] Last Admin: 07/11/21 21:54 Dose: 1 mg Documented by: Hydromorphone HCl (Hydromorphone 0.5 Mg/0.5 Ml Syringe) 0.5 mg IV Q2HP PRN; Protocol PRN Reason: Per Pain Protocol Iron Carb/Multivit/[place]/Folic Acid (Multivit,Ther Iron,Ca,Fa & Min 1 Tablet) 1 tab PO DAILY [facility] Last Admin: 07/11/21 21:54 Dose: 1 tab Documented by: Lactulose (Lactulose 20 Gm/30 Ml Oral.Mónica) 10 gm PO DAILYP PRN PRN Reason: Constipation Lorazepam (Lorazepam 2 Mg/Ml Vial) 0 mg IV Q4HP PRN; Protocol PRN Reason: Alcohol Withdrawal Magnesium Hydroxide (Magnesium Hydroxide 30 Ml Oral.Susp) 30 ml PO BIDP PRN PRN Reason: Constipation Methocarbamol (Methocarbamol 750 Mg Tablet) 750 mg PO Q6HP PRN PRN Reason: Muscle Spasm Last Admin: 07/11/21 17:42 Dose: 750 mg Documented by: Metoprolol Succinate (Metoprolol Succinate 25 Mg Tab.Xl.24h) 25 mg PO QDAY [facility] Last Admin: 07/11/21 08:55 Dose: 25 mg Documented by: Nicotine (Nicotine 21 Mg Patch) 21 mg TOPICAL DAILY@1000 [facility] Last Admin: 07/11/21 09:45 Dose: 21 mg Documented by: Nicotine Polacrilex (Nicotine Polacrilex 2 Mg Gum) 2 mg CHEW/PARK Q4HP PRN PRN Reason: nicotine withdrawal Omeprazole (Omeprazole 20 Mg Capsule) 20 mg PO BIDAC [facility] Last Admin: 07/11/21 17:38 Dose: 20 mg Documented by: Ondansetron HCl (Ondansetron 4 Mg/2 Ml Vial) 4 mg IV Q4HP PRN; Protocol PRN Reason: Nausea And Vomiting Polyethylene Glycol (Polyethylene Glycol 3350 17 Gm Packet) 17 gm PO DAILYP PRN PRN Reason: Constipation Senna (Sennosides 1 Tablet) 2 tab PO HS [facility] Last Admin: 07/11/21 19:48 Dose: Not Given Documented by: Sodium Biphosphate/Sodium Phosphate (Fleets Adult Enema) 1 dose [place] Q3-4DAYS PRN PRN Reason: Constipation Sodium Chloride (0.9 % Sodium Chloride 10 Ml Syringe) 10 ml IV Q8 [facility] Last Admin: 07/12/21 04:28 Dose: 10 ml Documented by: Thiamine HCl (Thiamine 100 Mg Tablet) 100 mg PO QDAY [facility] Throat Lozenges (Benzocaine/Menthol 1 Lozenge) 1 lozenge PO PRN PRN PRN Reason: Sore Throat A/P Assessment and plan (1) Closed fracture of right hip: Assessment and plan: TTWB on RLE. Ambulate with PT/OT today. Use incentive spirometer TID at minimum. Likely discharge in 1-2 days per hospitalist. F/u with [facility] in 2 weeks. Status: Acute Time Spent With Patient Time: Total time spent is greater than 50% in coordination of care (as documented) at patient's floor/unit and/or counseling patient:
--- NOTE | 2021-07-12 07:17 | Internal Med Progress Note ---
SUBJECTIVE Subjective Patient information: Note initiated : 07/12/21 at 7:16 am Service Date, if different from initiated Date: [] Patient: Lyndsay Gonzalez a 61 y/o F admitted on 07/10/21 for fall. Chief Complaint: [] Interval history: History of present illness: Ms. Gonzalez is a 61 year old female with a history of lung cancer status post chemotherapy and right bilobectomy complicated by metastasis to the brain, adrenal glands currently treated with palliative pembrolizumab, coronary artery disease, COPD, GERD, alcohol use disorder, tobacco use disorder who had a fall and suffered a right hip fracture. Hospital medicine has been consulted for a dmission, orthopedic surgery Dr. Weaver plans to proceed with surgical correction of the hip fracture. We discussed the usual clinical course for hip fracture with specific mention of her medical comorbidities that may complicate the hospitalization. Patient understands and wishes to proceed with surgery. We discussed CODE STATUS, the patient wishes to be DNR/DNI. 07/11 Poor sleep and headache but otherwise no new complaints overnight events. CIWA score quite low and patient did not want any alcohol with her dinner last night. 07/12 She states she has been of a headache. Has her chronic mild cough and shortness of breath. No new complaints. No complaints withdrawal alcohol. Potassium low and will replete. Review of Systems: denies headache/fever/chills/nausea/vomiting/chest or abdominal pain/cough/dyspnea/diarrhea. Otherwise see above. Constitutional Vitals: Vital Signs Temp Pulse Resp BP Pulse Ox 98.9 F 106 H 18 127/83 96 07/12/21 03:16 07/12/21 03:16 07/12/21 03:16 07/12/21 03:16 07/12/21 03:16 Period Temp Pulse Resp BP Sys/Soria Pulse Ox Last 24 Hr 98.1 F-100 F 95-111 14-20 127-160/72-89 91-99 Intake and Output 07/11/21 07/12/21 07/12/21 21:59 05:59 13:59 Intake Total 376 Output Total 1450 1300 Balance -1450 -924 Weight 51.71 kg Intake & Output: Intake & Output 07/11/21 07/12/21 07/12/21 21:59 05:59 13:59 Intake Total 376 Output Total 1450 1300 Balance -7151 -314 Weight 51.71 kg Intake: IV 51 Vitamin B1 100 mg In Sodium 51 Chloride 0.9% 50 ml @ 50 mls/hr IV ONCE ONE Rx#:[id number] Oral 325 Output: Urine Catheter Amount 1450 1300 Other: Urine Appearance Clear Clear Urine Color Dark Yellow Bright Yellow Exam: General: Alert, Awake, No acute Distress, obese Eyes/N/T: EOMI, Head/Neck: neck supple, CV: RRR, No murmurs, Pulm: Clear b/l, no wheezing/rhonchi/rales Abd: soft, nontender, +BS x4 Ext: no clubbing/cyanosis/edema Neuro: Alert, no focal deficits, moves all extremities, Skin: warm/dry OBJ DATA Labs CBC & Chem 7: 07/12/21 05:48 07/12/21 05:48 Labs: Abnormal Lab Results 07/11/21 07/11/21 07/10/21 05:05 05:05 12:40 WBC RBC 2.95 L Hgb 10.7 L Hct 31.7 L MCV 107.5 H MCH 36.3 H RDW 16.2 H MPV 10.6 H Neut % (Auto) 79.5 H Lymph % (Auto) 9.9 L [place] % (Auto) Lymph # (Auto) 0.98 L [place] # (Auto) 1.02 H Absolute Neutrophils Sodium 132 L Chloride 95 L BUN 4 L Creatinine 0.5 L 0.5 L Glucose 108 H 114 H Calcium 8.4 L 8.1 L GGT 123 H 157 H AST 33 H Alkaline Phosphatase 169 H 203 H Lactate Dehydrogenase 240 H Total Protein 5.5 L Albumin 3.1 L Ethyl Alcohol 07/10/21 07/10/21 07/10/21 12:40 00:50 00:50 WBC 11.8 H RBC 3.52 L Hgb Hct MCV 108.0 H MCH 37.8 H RDW 16.2 H MPV Neut % (Auto) 93.5 H Lymph % (Auto) 3.7 L [place] % (Auto) Lymph # (Auto) 0.43 L [place] # (Auto) Absolute Neutrophils 11.01 H Sodium Chloride BUN 4 L Creatinine Glucose 106 H Calcium GGT AST 39 H Alkaline Phosphatase 191 H Lactate Dehydrogenase Total Protein Albumin Ethyl Alcohol 0.238 H 07/10/21 00:50 WBC RBC 3.54 L Hgb Hct MCV 107.1 H MCH 37.0 H RDW 16.5 H MPV Neut % (Auto) Lymph % (Auto) [place] % (Auto) 12.5 H Lymph # (Auto) [place] # (Auto) Absolute Neutrophils Sodium Chloride BUN Creatinine Glucose Calcium GGT AST Alkaline Phosphatase Lactate Dehydrogenase Total Protein Albumin Ethyl Alcohol Meds: Medications Acetaminophen (Acetaminophen 325 Mg Tablet) 650 mg PO Q6HP PRN; Protocol PRN Reason: Per Pain Protocol/Fever > 101 Last Admin: 07/11/21 11:25 Dose: 650 mg Documented by: Hydrocodone Bitart/Acetaminophen (Hydrocodone/Apap 7.5/325mg Tablet) 0 tab PO Q4HP PRN; Protocol PRN Reason: Per Pain Protocol Last Admin: 07/12/21 07:14 Dose: 2 tab Documented by: Albuterol/Ipratropium (Ipratropium/Albuterol 3 Ml Ampul.Neb) 3 ml NEB Q4HP PRN PRN Reason: Shortness Of Breath Aspirin (Aspirin 81 Mg Tab.Chew) 81 mg PO BID [facility] Last Admin: 07/11/21 19:48 Dose: 81 mg Documented by: Bisacodyl (Bisacodyl 10 Mg Supp.Rect) 10 mg [place] Q2-3DAYS PRN PRN Reason: Constipation Chlordiazepoxide HCl (Chlordiazepoxide 25 Mg Capsule) 50 mg PO Q4HP PRN PRN Reason: Alcohol Withdrawal Docusate Sodium (Docusate Sodium 100 Mg Capsule) 100 mg PO BID [facility] Last Admin: 07/11/21 19:48 Dose: Not Given Documented by: Duloxetine HCl (Duloxetine 30 Mg Capsule) 60 mg PO DAILY [facility] Last Admin: 07/11/21 08:55 Dose: 60 mg Documented by: Folic Acid (Folic Acid 1 Mg Tablet) 1 mg PO DAILY [facility] Last Admin: 07/11/21 21:54 Dose: 1 mg Documented by: Hydromorphone HCl (Hydromorphone 0.5 Mg/0.5 Ml Syringe) 0.5 mg IV Q2HP PRN; Protocol PRN Reason: Per Pain Protocol Iron Carb/Multivit/[place]/Folic Acid (Multivit,Ther Iron,Ca,Fa & Min 1 Tablet) 1 tab PO DAILY [facility] Last Admin: 07/11/21 21:54 Dose: 1 tab Documented by: Lactulose (Lactulose 20 Gm/30 Ml Oral.Mónica) 10 gm PO DAILYP PRN PRN Reason: Constipation Lorazepam (Lorazepam 2 Mg/Ml Vial) 0 mg IV Q4HP PRN; Protocol PRN Reason: Alcohol Withdrawal Magnesium Hydroxide (Magnesium Hydroxide 30 Ml Oral.Susp) 30 ml PO BIDP PRN PRN Reason: Constipation Methocarbamol (Methocarbamol 750 Mg Tablet) 750 mg PO Q6HP PRN PRN Reason: Muscle Spasm Last Admin: 07/12/21 07:14 Dose: 750 mg Documented by: Metoprolol Succinate (Metoprolol Succinate 25 Mg Tab.Xl.24h) 25 mg PO QDAY [facility] Last Admin: 07/11/21 08:55 Dose: 25 mg Documented by: Nicotine (Nicotine 21 Mg Patch) 21 mg TOPICAL DAILY@1000 [facility] Last Admin: 07/11/21 09:45 Dose: 21 mg Documented by: Nicotine Polacrilex (Nicotine Polacrilex 2 Mg Gum) 2 mg CHEW/PARK Q4HP PRN PRN Reason: nicotine withdrawal Omeprazole (Omeprazole 20 Mg Capsule) 20 mg PO BIDAC [facility] Last Admin: 07/12/21 07:14 Dose: 20 mg Documented by: Ondansetron HCl (Ondansetron 4 Mg/2 Ml Vial) 4 mg IV Q4HP PRN; Protocol PRN Reason: Nausea And Vomiting Polyethylene Glycol (Polyethylene Glycol 3350 17 Gm Packet) 17 gm PO DAILYP PRN PRN Reason: Constipation Senna (Sennosides 1 Tablet) 2 tab PO HS [facility] Last Admin: 07/11/21 19:48 Dose: Not Given Documented by: Sodium Biphosphate/Sodium Phosphate (Fleets Adult Enema) 1 dose [place] Q3-4DAYS PRN PRN Reason: Constipation Sodium Chloride (0.9 % Sodium Chloride 10 Ml Syringe) 10 ml IV Q8 [facility] Last Admin: 07/12/21 04:28 Dose: 10 ml Documented by: Thiamine HCl (Thiamine 100 Mg Tablet) 100 mg PO QDAY [facility] Throat Lozenges (Benzocaine/Menthol 1 Lozenge) 1 lozenge PO PRN PRN PRN Reason: Sore Throat A/P Narrative A/P Narrative: A: #Right intratrochanteric femur fracture: s/p ORIF (07/10) #COPD(not on home oxygen): stable #CAD: stable #Alcohol use disorder: #Tobacco use disorder: #GERD: #h/o Lung CA w/mets to brain s/p Right lobectomy on palliative pembrolizumab #Hypokalemia: Plan: -Ortho following -Replete electrolytes as needed -CIWA scoring to monitor for alcohol withdrawal. etoh with meal -PT consult. -cont home BB -Smoking cessation counseling -CM for placement -ppx: Per surgery ASA bid / home ppi CODE STATUS: DNR/DNI Time Spent With Patient Time: Total time spent is greater than 50% in coordination of care (as documented) at patient's floor/unit and/or counseling patient: QUALITY VTE Deep Vein Thrombosis/Pulmonary Embolism Present on Admission: No
[2021-07-12 07:27] LABS: Prothrombin Time 13.2 sec (11.9-14.5)
[2021-07-12 07:45] LABS: Hematocrit 30.8 % (34.1-44.9); Hemoglobin 10.8 g/dL (11.2-15.7)
[2021-07-12 08:05] LABS: Blood Urea Nitrogen 7 mg/dL (6-20); Calcium 8.4 mg/dL (8.6-10.4); Carbon Dioxide 29 mmol/L (22-30); Chloride 99 mmol/L (96-108); Glomerular Filtration Rate 125; Glucose 95 mg/dL (70-105)
[2021-07-12] MEDS ORDERED: POTASSIUM CHLORIDE 20 MEQ TABLET PO ONE (08:15)
[2021-07-12] MEDS ORDERED: POTASSIUM CHLORIDE 40 MEQ in DEXTROSE 5% IN WATER 500 ML IV ONE (08:15)
[2021-07-12] MEDS: DOCUSATE SODIUM 100 MG CAPSULE PO SCH ×2 (09:17→19:59)
[2021-07-12] MEDS: ASPIRIN 81 MG TAB.CHEW PO SCH ×2 (09:18→19:59)
[2021-07-12] MEDS: FOLIC ACID 1 MG TABLET PO SCH (09:18)
[2021-07-12] MEDS: MULTIVIT,THER IRON,CA,FA & MIN 1 TABLET PO SCH (09:18)
[2021-07-12] MEDS: THIAMINE 100 MG TABLET PO SCH (09:18)
[2021-07-12] MEDS: METOPROLOL SUCCINATE 25 MG TAB.XL.24H PO SCH (09:18)
[2021-07-12] MEDS: DULoxetine 30 MG CAPSULE PO SCH (09:18)
[2021-07-12] MEDS: NICOTINE 21 MG PATCH TOPICAL SCH (09:19)
--- NOTE | 2021-07-12 12:45 | Discharge Summary ---
Discharge Provider Provider Patient information: Note initiated : 07/12/21 at 12:43 pm Service Date, if different from initiated Date: [] Patient: Lyndsay Gonzalez 61 y/o F admitted on 07/10/21 for fall. Chief Complaint: [] Date of admission: 07/10/21 12:15 Discharge date: 07/13/21 Primary care physician: JERICHO Barron Consults: 07/10/21 Consult to Physician [CONS] Stat Comment: Consulting Provider: Fly Weaver Reason For Exam: Physician to Consult Consult to Physician [CONS] Stat Comment: Consulting Provider: Cody Multani Reason For Exam: Physician to Consult 07/10/21 12:27 Consult to Physician [CONS] Stat Comment: Consulting Provider: Fly Weaver Reason For Exam: Physician to Consult Discharge Meds Discharge Medications Home Medications albuterol sulfate 90 mcg/actuation aerosol inhaler (Ventolin HFA) 2 puff INHALATION Q4H PRN g 01/17/19 [History Confirmed 07/10/21 Last Taken Unknown] acetaminophen 500 mg tablet (Tylenol Extra Strength) 500 mg PO Q6H PRN 07/26/20 [History Confirmed 07/10/21 Last Taken Unknown] omeprazole 20 mg capsule,delayed release 20 mg PO BID 07/26/20 [History Confirmed 07/10/21 Last Taken Unknown] ondansetron 8 mg disintegrating tablet 8 mg PO Q8H 07/26/20 [History Confirmed 07/10/21 Last Taken Unknown] hydrocodone 5 mg-acetaminophen 325 mg tablet 1 - 2 tab PO BID PRN #60 tab 11/22/20 [Rx Confirmed 07/10/21 Last Taken Unknown] pembrolizumab 50 mg intravenous solution 200 mg IV Q3W 11/22/20 [History Confirmed 07/10/21 Last Taken Unknown] metoprolol succinate 25 mg tablet,extended release 24 hr 25 mg PO QDAY #90 tab 01/11/21 [Rx Confirmed 07/10/21 Last Taken Unknown] duloxetine 60 mg capsule,delayed release 60 mg PO QDAY #90 cap 07/04/21 [Rx Confirmed 07/10/21 Last Taken Unknown] Aspirin 81 mg PO BID 30 Days 07/12/21 [Rx Last Taken Unknown] hydrocodone 7.5 mg-acetaminophen 325 mg tablet 1 - 2 tab PO Q4HP PRN #50 tab 07/12/21 [Rx Last Taken Unknown] methocarbamol 750 mg tablet 750 mg PO Q6HP PRN #30 tab 07/12/21 [Rx Last Taken Unknown] COURSE Hospital Course Hospital course: Interval history: History of present illness: Ms. Gonzalez is a 61 year old female with a history of lung cancer status post chemotherapy and right bilobectomy complicated by metastasis to the brain, adrenal glands currently treated with palliative pembrolizumab, coronary artery disease, COPD, GERD, alcohol use disorder, tobacco use disorder who had a fall and suffered a right hip fracture. Hospital medicine has been consulted for admission, orthopedic surgery Dr. Weaver plans to proceed with surgical correction of the hip fracture. We discussed the usual clinical course for hip fracture with specific mention of her medical comorbidities that may complicate the hospitalization. Patient understands and wishes to proceed with surgery. We discussed CODE STATUS, the patient wishes to be DNR/DNI. 07/11 Poor sleep and headache but otherwise no new complaints overnight events. CIWA score quite low and patient did not want any alcohol with her dinner last night. 07/12 She states she has been of a headache. Has her chronic mild cough and shortness of breath. No new complaints. No complaints withdrawal alcohol. Potassium low and will replete. 07/13 Potassium within normal limits. No overnight event or new complaints. Stable for discharge to rehab. A: #Right intratrochanteric femur fracture: s/p ORIF (07/10) #COPD(not on home oxygen): stable #CAD: stable #Alcohol use disorder: #Tobacco use disorder: #GERD: #h/o Lung CA w/mets to brain s/p Right lobectomy on palliative pembrolizumab #Hypokalemia: Plan: -Ortho following -ppx: Per surgery ASA bid Discharge diagnosis: Right femur fracture Secondary discharge diagnosis: COPD CAD alcohol use disorder tobacco abuse GERD history of lung cancer with mets hypokalemia Time Spent with Patient Time attestation: Total time spent providing and/or coordinating discharge services: Time spent: Greater than 30 minutes EXAM Constitutional Vitals: Temp Pulse Resp BP Pulse Ox 98.3 F 104 H 20 122/77 93 07/12/21 07:36 07/12/21 07:36 07/12/21 07:36 07/12/21 07:36 07/12/21 07:36 Discharge Data Data Completed and Pending Labs on day of discharge: Labs from last 24 hours 07/12/21 07/12/21 07/12/21 05:48 05:48 05:48 Hgb 10.8 L Hct 30.8 L PT 13.2 INR 1.0 Sodium 137 Potassium 2.8 L* Chloride 99 Carbon Dioxide 29 Anion Gap 9.0 BUN 7 Creatinine 0.3 L GFR Calculation 125 Glucose 95 Calcium 8.4 L Discharge Plan Patient/Caregiver Discharge Instructions Activity: ambulate only with your walker, as per physical therapy and as instructed Diet: Regular Diet Instructions: ORIF of Hip Fracture (DC) Activity Restrictions/Additional Instructions: Discharge Instructions: Toe touch weight bearing with right lower extremity. Wear comfortable clothing for your physical therapy. You have the silver dressing, leave in place for 7-14 days then remove. You may shower with dressing on, pat dry after shower. You may shower, no soaking in tub/pool/jacuzzi. To avoid constipation while taking any narcotic pain medication, take an over the counter stool softener/laxative. Use your ice packs as directed. Ice and elevation will help with pain and swelling. If you have any questions or concerns call your orthopedic surgeon before going to the emergency room. [facility] has a injury prevention coordinator physician 24 hours per day/7 days per week and can be reached at [phone]. Call for fevers above 100.5 or pain not controlled by medication. Your prescriptions are with your discharge information. Some medications were electronically transmitted to your pharmacy of choice. Take Aspirin as prescribed to prevent blood clots (see medication list). This discharge packet is provided to you to help keep you informed about your care. We want to ensure you get everything you need when you go home. You will also be receiving a call from us in a few days to follow up with you and see how you are doing since your discharge. This gives us a chance to listen to any concerns you maybe experiencing since you were discharged or any additional needs you may have, as well as providing us feedback on your care experience. We strive to always provide excellent care and thank you for your feedback and for choosing [facility]. Prescriptions: New Aspirin 81 mg PO BID 30 Days 0RF methocarbamol 750 mg Tablet 750 mg PO Q6HP PRN (Reason: Muscle Spasm) Qty: 30 0RF hydrocodone-acetaminophen 7.5-325 mg Tablet 1 - 2 tab PO Q4HP PRN (Reason: Pain) Qty: 50 0RF Continued omeprazole 20 mg capsule,delayed release(DR/EC) 20 mg PO BID 0RF acetaminophen [Tylenol Extra Strength] 500 mg tablet 500 mg PO Q6H PRN (Reason: Pain) 0RF ondansetron 8 mg tablet,disintegrating 8 mg PO Q8H 0RF duloxetine 60 mg capsule,delayed release(DR/EC) 60 mg PO QDAY Qty: 90 1RF albuterol sulfate [Ventolin HFA] 90 mcg/actuation HFA aerosol inhaler 2 puff INHALATION Q4H PRN (Reason: Shortness Of Breath Or Wheezing) 0RF metoprolol succinate 25 mg tablet extended release 24 hr 25 mg PO QDAY Qty: 90 1RF pembrolizumab 50 mg recon soln 200 mg IV Q3W 0RF Rx Instructions: administer over 30 mins hydrocodone-acetaminophen 5-325 mg tablet 1 - 2 tab PO BID PRN (Reason: pain) Qty: 60 0RF Follow Up Plan Follow up with: Cecilia Calderon ARNP [Primary Care Provider] - (Please call and scheduled a hospital follow up appointment.) Quynh Watts PA-C [Physician Financial Controller] - (PLease call and schedule a surgical follow up to be seen in 10-14 days post surgery.) Patient Disposition: Xfer SNF Prognosis: Fair Rehab Potential: Fair I certify that the patient requires SNF services: Yes Overall status at discharge: patient is not back to baseline Discharge Orders: Discharge Order (Routine); Ordered 07/13/21 Ordered By: Ruel Love Discharge Comment: May place silver dressing prior to discharge. QUALITY VTE Deep Vein Thrombosis/Pulmonary Embolism Present on Admission: No
[2021-07-12] MEDS: SENNOSIDES 1 TABLET PO SCH (20:00)
[2021-07-13] MEDS: 0.9 % SODIUM CHLORIDE 10 ML SYRINGE IV SCH ×2 (01:40→04:10)
[2021-07-13] MEDS: HYDROCODONE/APAP 7.5/325MG TABLET PO PRN ×2 (01:40→09:25)
[2021-07-13] MEDS: METHOCARBAMOL 750 MG TABLET PO PRN ×2 (01:40→09:26)
[2021-07-13 06:48] LABS: Hematocrit 31.2 % (34.1-44.9); Hemoglobin 10.6 g/dL (11.2-15.7)
[2021-07-13 06:59] LABS: INR 0.9 (0.9-1.1); Prothrombin Time 12.9 sec (11.9-14.5)
[2021-07-13 07:15] LABS: Blood Urea Nitrogen 8 mg/dL (6-20); Calcium 8.9 mg/dL (8.6-10.4); Carbon Dioxide 30 mmol/L (22-30); Chloride 98 mmol/L (96-108); Glomerular Filtration Rate 114; Glucose 85 mg/dL (70-105)
[2021-07-13] MEDS: ASPIRIN 81 MG TAB.CHEW PO SCH (08:54)
[2021-07-13] MEDS: MULTIVIT,THER IRON,CA,FA & MIN 1 TABLET PO SCH (08:54)
[2021-07-13] MEDS: DULoxetine 30 MG CAPSULE PO SCH (08:54)
[2021-07-13] MEDS: FOLIC ACID 1 MG TABLET PO SCH (08:55)
[2021-07-13] MEDS: METOPROLOL SUCCINATE 25 MG TAB.XL.24H PO SCH (08:55)
[2021-07-13] MEDS: OMEPRAZOLE 20 MG CAPSULE PO SCH (08:55)
[2021-07-13] MEDS: THIAMINE 100 MG TABLET PO SCH (08:55)
[2021-07-13] MEDS: DOCUSATE SODIUM 100 MG CAPSULE PO SCH (08:56)
[2021-07-13] MEDS: NICOTINE 21 MG PATCH TOPICAL SCH (10:07)
--- NOTE | 2021-07-22 11:22 | Operative Note ---
DATE OF OPERATION: 07/10/2021 PREOPERATIVE DIAGNOSIS: Right intertrochanteric/low base of the neck femur fracture. POSTOPERATIVE DIAGNOSIS: Right intertrochanteric/low base of the neck femur fracture. OPERATION PROPOSED: Reduction and internal fixation of a right femoral neck fracture/low base of the neck with a short gamma nail. OPERATION PERFORMED: Same. SURGEON: Fly Weaver M.D. BRAKE OPERATOR SHEET METAL: Quynh Watts PA-C. This providers expertise and technical skill were required throughout the case. The PA assisted with preoperative coordination, intraoperative retraction, wound closure, and dressing and splint application, as well as postoperative documentation and care coordination. INDICATIONS: This is a lady who has sustained a fall. She has a fracture, which is intertrochanteric/low base of the neck. We have elected to proceed with reduction and internal fixation. DESCRIPTION OF PROCEDURE: Informed consent was obtained. She was taken to the operating room and provided with appropriate anesthetic and prophylactic antibiotic. Best possible reduction was obtained. I then made an incision proximal to the tip of the greater trochanter and advanced through the gluteal musculature arriving on the tip of the trochanter. We entered the canal with a 3.2 mm guidewire, which was advanced down the femoral shaft. An opening reamer was utilized. I then passed a long guidewire, and over this passed an appropriate length gamma nail, a 3.2 mm guidewire was then advanced across the fracture into the femoral head and neck. This was low in the calcar and centered on the lateral view. I then placed a second wire to keep his femoral neck from spinning with reaming and implant fixation. I reamed and placed appropriate length hip screw. There was compression applied across the fracture. I locked the screw through the intramedullary implant. I placed a distal interlocking screw. The wounds were irrigated thoroughly and I closed with a 0 Vicryl in interrupted fashion, 2-0 Vicryl inverted deep dermal and nicola. The procedure was tolerated well. COMPLICATIONS: None. ESTIMATED BLOOD LOSS: 100 mL. GDD:anna Job ID: [id number] Doc ID: [id number] Fly Weaver MD
== END 2021-07-13 11:00 | DRG 481 ==
LOC: ED 00:25 → SUR 09:15 → ICU 12:15 → MEDSUR 07-11 16:42
PROVIDERS: ADMIT Internal Medicine; ATTEND Internal Medicine

== ENCOUNTER 2022-03-13 01:13 | Inpatient (IN) ==
[2022-03-13] MEDS ORDERED: 0.9 % SODIUM CHLORIDE 1,000 ML IV ONE (01:21)
--- NOTE | 2022-03-13 01:41 | Emergency Department Note ---
Fall HPI General Chief Complaint: Extremity Injury, Lower Stated Complaint: lt hip pain Time Seen by Provider: 03/13/22 01:18 Source: patient and EMS Mode of arrival: EMS Limitations: no limitations History of Present Illness HPI Narrative: Narrative: Patient presents to ED via EMS with complaints of left foot pain x6 hours prior to arrival. Patient states she was in the bathroom and she fell. States he was on a ground for 6 hours so she was able to crawl to call EMS. She reports left hip pain which she rates 7/10. She says she does not recall if she hit her head or had loss of consciousness. Patient is obviously intoxicated. She denies nausea, vomiting, vision change, headaches, extremity weakness, extremity numbness, bowel bladder incontinence, back pain. She denies any other alleviating or aggravating factors. Related Data Home Medications Medication Instructions Recorded Confirmed albuterol sulfate 90 mcg/actuation 2 puff inhalation Q4H PRN 01/17/19 07/10/21 aerosol inhaler (Ventolin HFA) Shortness Of Breath Or Wheezing acetaminophen 500 mg tablet 500 mg PO Q6H PRN Headache 07/26/20 07/10/21 (Tylenol Extra Strength) omeprazole 20 mg capsule,delayed 20 mg PO BID 07/26/20 07/10/21 release ondansetron 8 mg disintegrating 8 mg PO Q8H 07/26/20 07/10/21 tablet potassium chloride 20 mEq/15 mL 20 meq PO QDAY 10/18/21 oral liquid tramadol 50 mg tablet 50 mg PO Q6H PRN Headache 10/18/21 acyclovir 400 mg tablet 1 tab PO BID 03/13/22 03/13/22 Previous Rx's Medication Instructions Recorded duloxetine 60 mg capsule,delayed 60 mg PO QDAY #90 caps 07/04/21 release methocarbamol 750 mg tablet 750 mg PO Q6HP PRN Muscle Spasm 07/12/21 #30 tabs metoprolol succinate 25 mg 25 mg PO QDAY #90 tabs 02/13/22 tablet,extended release 24 hr Allergies Allergy/AdvReac Type Severity Reaction Status Date / Time No Known Drug Allergies Allergy Verified 03/13/22 01:21 Review of Systems ROS ROS Narrative: Narrative: All systems ED: reviewed and negative except as stated. [facility] Narrative Patient History Narrative: Narrative: Medical/Surgical/Family History All Active Problems (Updated 03/13/22 @ 03:39 by Homar Rueda DO) Fracture of hip, left, closed (Acute) Fall (Acute) Alcohol intoxication (Acute) Closed fracture of right hip (Acute) Sinus tachycardia (Acute) Back pain (Acute) History of lobectomy of lung (Chronic) History of breast biopsy (Chronic) Lung cancer (Chronic) Headache (Chronic) Fatigue (Chronic) Hypertension (Chronic) Smoker (Chronic) GERD (gastroesophageal reflux disease) (Chronic) Adenocarcinoma, lung (Chronic) Hyperlipidemia (Chronic) Postmenopausal (Chronic) Hemangioma (Chronic) Alcohol consumption heavy (Chronic) Mass (Chronic) Atherosclerosis of coronary artery (Chronic) COPD (chronic obstructive pulmonary disease) (Chronic) Medical History Adenocarcinoma, lung Alcohol consumption heavy Atherosclerosis of coronary artery COPD (chronic obstructive pulmonary disease) Fatigue GERD (gastroesophageal reflux disease) Headache Heart palpitations Hemangioma Hyperlipidemia Hypertension 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 Grandmother Pancreatic cancer Maternal Grandfather Heart disease Maternal Social History Smoking Status: Current every day smoker Alcohol Intake Frequency: a few times a week Substance Use: does not use Exam Narrative Narrative: Narrative: General Limitations: no limitations General appearance: Present appears intoxicated Head Head: Present atraumatic and normocephalic Eye Eye: Present PERRL and EOMI Neck Neck: Present normal inspection and full ROM; Absent tenderness Respiratory Respiratory: Present normal lung sounds bilaterally; Absent respiratory distress Cardiovascular Cardiovascular: Present regular rate and normal rhythm Adbominal Abdominal: Present soft; Absent tenderness Extremities Extremities: Present normal capillary refill Expanded Lower Extremity Hip/Pelvis: Present tenderness and shortening Upper leg: Present normal inspection and full ROM Knee: Present normal inspection and full ROM Back Back: Absent L-S tenderness Neurological Neurological: Present alert and oriented X3 Psychiatric Psychiatric: Present normal affect and normal mood Skin Skin: Present warm (WNL) and normal color Expanded Skin Body image: 1. Superficial abrasion 2. Superficial abrasion Course Course Course Narrative: Patient was admitted for left hip pain status post fall. Blood work show that patient's alcohol level was elevated meeting intoxication limits. Other labs were unremarkable exception of mild leukocytosis. Renal functions intact. Rhabdomyolysis is ruled out as her CK is normal. CT of the head was obtained with image reviewed myself with no acute findings. CT of the pelvis obtained and shows a left femoral comminuted intertrochanteric fracture. Church catheter in place. Case discussed with orthopedic surgeon who recommends that patient be admitted to the hospital service. Case discussed with hospitalist who has agreed to admit the patient. Patient remain NPO. Patient expressed verbal understanding agreement of plan. Reevaluation(s) Reevaluation #1: Patient remains hemodynamic stable. No new complaints at this time Time: 02:32 Consultations Consultation #1: Case discussed with on-call orthopedic surgeon, Dr. Weaver, who recommends the patient be admitted to the hospitalist service for surgery in the morning. Time: 03:40 Consultation #2: Case discussed with hospitalist who has agreed to admit the patient. Time: 03:45 Vital Signs Vital signs: Vital Signs Temperature 98.1 F 03/13/22 01:14 Respiratory Rate 20 03/13/22 01:14 Temperature 98.1 F 03/13/22 01:14 Pulse Rate 99 H 03/13/22 06:24 Respiratory Rate 18 03/13/22 01:26 Blood Pressure 146/97 03/13/22 06:24 Pulse Oximetry (%) 100 03/13/22 06:24 Oxygen Delivery Method 03/13/22 02:55 Oxygen Flow Rate (L/min) 1 03/13/22 02:55 [facility] Narrative Medical decision making narrative: Narrative: Differential Diagnosis Differential Diagnosis: Hip fracture, alcohol intoxication, rhabdomyolysis Medical Records Medical records reviewed: Yes I reviewed the patient's medical records. Lab Data Lab results reviewed: Yes I reviewed the patient's lab results. Result diagrams: 03/13/22 01:32 Labs: Lab Results 03/13/22 03/13/22 03/13/22 Range/Units 01:32 01:32 01:32 WBC 12.1 H (4.5-11.0) K/mcL RBC 3.46 L (3.59-5.38) M/mcL Hgb 13.5 (11.2-15.7) g/dL Hct 36.7 (34.1-44.9) % POC Hct (36-48) MCV 106.1 H (80.0-100.0) fL MCH 39.0 H (26.0-34.0) pg MCHC 36.8 H (31.0-36.0) g/dL RDW 12.5 (11.5-14.5) % Plt Count 333 (140-440) K/mcL MPV 9.5 (8.8-12.5) fL Immature Gran % (Auto) 0.6 H (0.0-0.5) % Neut % (Auto) 85.6 H (38.0-78.0) % Lymph % (Auto) 8.1 L (15.5-49.0) % Churchill % (Auto) 5.0 (1.0-12.0) % Eos % (Auto) 0.2 (0.0-7.0) % Baso % (Auto) 0.5 (0.0-2.0) % Lymph # (Auto) 0.98 L (1.50-4.80) K/mcL Churchill # (Auto) 0.61 (0.10-0.90) K/mcL Eos # (Auto) 0.03 (0.00-0.70) K/mcL Baso # (Auto) 0.06 (0.00-0.30) K/mcL Immature Gran # 0.07 H (0.00-0.05) K/mcl Absolute Neutrophils 10.39 H (1.80-8.00) K/mcL POC Sodium (133-145) POC Potassium (3.3-5.1) POC Chloride (96-108) POC Total CO2 (22-30) POC BUN (6-20) POC Creatinine (0.6-1.2) POC Glucose (70-105) POC WB Ioniz Calcium (1.16-1.32) Total Creatine Kinase 78 (24-170) U/L Ethyl Alcohol mg/dL 127.0 mg/dL Ethyl Alcohol g/dL 0.127 H (<0.010) gm/dL 03/13/22 Range/Units 02:33 WBC (4.5-11.0) K/mcL RBC (3.59-5.38) M/mcL Hgb (11.2-15.7) g/dL Hct (34.1-44.9) % POC Hct 40.0 (36-48) MCV (80.0-100.0) fL MCH (26.0-34.0) pg MCHC (31.0-36.0) g/dL RDW (11.5-14.5) % Plt Count (140-440) K/mcL MPV (8.8-12.5) fL Immature Gran % (Auto) (0.0-0.5) % Neut % (Auto) (38.0-78.0) % Lymph % (Auto) (15.5-49.0) % Churchill % (Auto) (1.0-12.0) % Eos % (Auto) (0.0-7.0) % Baso % (Auto) (0.0-2.0) % Lymph # (Auto) (1.50-4.80) K/mcL Churchill # (Auto) (0.10-0.90) K/mcL Eos # (Auto) (0.00-0.70) K/mcL Baso # (Auto) (0.00-0.30) K/mcL Immature Gran # (0.00-0.05) K/mcl Absolute Neutrophils (1.80-8.00) K/mcL POC Sodium 132 L (133-145) POC Potassium 3.3 (3.3-5.1) POC Chloride 94 L (96-108) POC Total CO2 25.0 (22-30) POC BUN < 3 L (6-20) POC Creatinine 0.5 L (0.6-1.2) POC Glucose 114 H (70-105) POC WB Ioniz Calcium 1.01 L (1.16-1.32) Total Creatine Kinase (24-170) U/L Ethyl Alcohol mg/dL mg/dL Ethyl Alcohol g/dL (<0.010) gm/dL Radiology Data Radiology results reviewed: Yes I reviewed the patient's radiology results. Radiology results narrative: CT of the head obtained with image reviewed myself, no acute intracranial fi nding CT of the pelvis obtained with image reviewed myself shows a left femoral comminuted intertrochanteric fracture Core Measures AMI Core Measures Followed: Yes Discharge Plan Patient/Caregiver Discharge Instructions Pt seen by PROCESS SUPERVISOR/PA only: No Clinical Impression: Fracture of hip, left, closed Qualifiers: Encounter type: initial encounter Qualified Code(s): S72.002A - Fracture of unspecified part of neck of left femur, initial encounter for closed fracture Fall Qualifiers: Encounter type: initial encounter Qualified Code(s): W19.XXXA - Unspecified fall, initial encounter Alcohol intoxication Qualifiers: Complication of substance-induced condition: uncomplicated Qualified Code(s): F10.920 - Alcohol use, unspecified with intoxication, uncomplicated Patient Disposition: Xfer As Outpt/Obs ([facility]) Condition: Good Follow up with: Cecilia Calderon ARNP [Primary Care Provider] - Prescriptions: No Action omeprazole 20 mg capsule,delayed release(DR/EC) 20 mg PO BID acetaminophen [Tylenol Extra Strength] 500 mg tablet 500 mg PO Q6H PRN (Reason: Headache) ondansetron 8 mg tablet,disintegrating 8 mg PO Q8H duloxetine 60 mg capsule,delayed release(DR/EC) 60 mg PO QDAY Qty: 90 1RF potassium chloride 20 mEq/15 mL liquid 20 meq PO QDAY tramadol 50 mg tablet 50 mg PO Q6H PRN (Reason: Headache) metoprolol succinate 25 mg tablet extended release 24 hr 25 mg PO QDAY Qty: 90 0RF albuterol sulfate [Ventolin HFA] 90 mcg/actuation HFA aerosol inhaler 2 puff INHALATION Q4H PRN (Reason: Shortness Of Breath Or Wheezing) methocarbamol 750 mg Tablet 750 mg PO Q6HP PRN (Reason: Muscle Spasm) Qty: 30 0RF acyclovir 400 mg tablet 1 tab PO BID
[2022-03-13 02:07] LABS: Basophils # (Auto) 0.06 K/mcL (0.00-0.30); Basophils % (Auto) 0.5 % (0.0-2.0); Eosinophils # (Auto) 0.03 K/mcL (0.00-0.70); Eosinophils % (Auto) 0.2 % (0.0-7.0); Hematocrit 36.7 % (34.1-44.9); Hemoglobin 13.5 g/dL (11.2-15.7); Lymphocytes # (Auto) 0.98 K/mcL (1.50-4.80); Lymphocytes % (Auto) 8.1 % (15.5-49.0); Mean Cell Volume 106.1 fL (80.0-100.0); Mean Corpuscular HGB Conc 36.8 g/dL (31.0-36.0); Mean Platelet Volume 9.5 fL (8.8-12.5); Monocytes # (Auto) 0.61 K/mcL (0.10-0.90); Neutrophils % (Auto) 85.6 % (38.0-78.0); Platelet Count 333 K/mcL (140-440); RBC 3.46 M/mcL (3.59-5.38); Red Cell Distribution Width 12.5 % (11.5-14.5); WBC 12.1 K/mcL (4.5-11.0)
[2022-03-13 02:12] LABS: Alcohol,Blood 0.127 gm/dL (<0.010)
[2022-03-13 02:17] LABS: Creatine Kinase 78 U/L (24-170)
[2022-03-13] MEDS ORDERED: fentaNYL 100 MCG/2 ML VIAL IV ONE ×2 (02:23→15:24)
[2022-03-13 02:37] LABS: POC Blood Urea Nitrogen < 3 (6-20); POC Calcium, Ionized 1.01 (1.16-1.32); POC Chloride 94 (96-108); POC Creatinine 0.5 (0.6-1.2); POC Glucose, Random 114 (70-105); POC Potassium 3.3 (3.3-5.1); POC Sodium 132 (133-145)
[2022-03-13] MEDS ORDERED: NALOXONE HCL 0.4 MG/ML VIAL IV PRN ×2 (03:45→15:53)
[2022-03-13] MEDS ORDERED: 0.9 % SODIUM CHLORIDE 1,000 ML IV SCH ×2 (03:45→09:04)
[2022-03-13] MEDS ORDERED: ONDANSETRON 4 MG/2 ML VIAL IV PRN ×3 (03:45→15:53)
[2022-03-13] MEDS ORDERED: METHOCARBAMOL 1,000 MG/10 ML VIAL IV ONE (05:29)
[2022-03-13] MEDS: morphine 2 MG/ML VIAL IV PRN ×2 (05:42→07:53)
--- NOTE | 2022-03-13 08:01 | Consultation ---
DATE OF CONSULTATION: 03/13/2022 DATE OF CONSULTATION: 03/13/2022 IDENTIFICATION: A 62-year-old female. CHIEF COMPLAINT: Left hip fracture. HISTORY OF PRESENT ILLNESS: The patient has some chronic problems including lung cancer, reflux disease, respiratory issues, alcoholism. She had a previous right intertrochanteric hip fracture in June treated surgically. She sustained a ground level fall last night. This was non-syncopal and she did not have head trauma. She presented to the ER with less hip pain and was unable to bear weight. Radiographs demonstrated an intertrochanteric hip fracture and I was called for evaluation and management. PAST MEDICAL HISTORY: Chronic obstructive pulmonary disease, lung cancer, chronic smoking, and reflux disease. PAST SURGICAL HISTORY: She has had a previous lobectomy of the lung, right intertrochanteric hip fracture treated surgically. MEDICATIONS: Albuterol. Omeprazole. Zofran. Potassium. Tramadol. Acyclovir. ALLERGIES: None. REVIEW OF SYSTEMS: Fairly unremarkable. She has been fairly healthy recently. PHYSICAL EXAMINATION: GENERAL: She is awake and alert. She is resting comfortably. HEAD: Normocephalic/atraumatic. EYES: PERRLA. Conjunctivae clear. ENT: WNL. LUNGS: Grossly clear. HEART: Regular. ABDOMEN: Benign. LEFT LOWER EXTREMITY: Carefully positioned, shortened. She has pain with any motion, seems to be grossly neurovascularly intact. RADIOLOGIC IMAGING: Radiographs demonstrate an intertrochanteric hip fracture. IMPRESSION: Left intertrochanteric hip fracture, markedly displaced. PLAN: We plan to proceed with ORIF. The surgical procedure, risks, complications, and limitations have been discussed. She understands these well. GDD:anna Job ID: [id number] Doc ID: [id number] Fly Weaver MD
--- NOTE | 2022-03-13 08:03 | Internal Med History&Physical ---
HPI History of Present Illness Patient information: Note initiated : 03/13/22 at 7:58 am Service Date, if different from initiated Date: [] Patient: Lyndsay Gonzalez a 62 y/o F admitted on 03/13/22 for lt hip pain. Chief Complaint: [] History of present illness: Ms. Gonzalez is a 62 year old F Who fell going to the bathroom. Crawled to the phone with for help complaining of left hip pain. She had been drinking as well. She was noted to be intoxicated in the ED. blood alcohol level in the ED 127. She fell and broke her right hip in June. Work-up in ED revealed left hip fracture. Dr. Weaver was contacted Patient is drinks she says only 3 times a week and has 2-3 drinks at a time which are usually Coke and run. Review of Systems: Pertinent positives as above plus chronic cough and shortness of breath.. Denies headache/fever/chills/nausea/vomiting/chest or abdominal pain/diarrhea. Remaining 10 point review of system reviewed negative PFSH PFSH All Active Problems (Updated 03/13/22 @ 03:39 by Homar Rueda DO) Fracture of hip, left, closed (Acute) Fall (Acute) Alcohol intoxication (Acute) Closed fracture of right hip (Acute) Sinus tachycardia (Acute) Back pain (Acute) History of lobectomy of lung (Chronic) History of breast biopsy (Chronic) Lung cancer (Chronic) Headache (Chronic) Fatigue (Chronic) Hypertension (Chronic) Smoker (Chronic) GERD (gastroesophageal reflux disease) (Chronic) Adenocarcinoma, lung (Chronic) Hyperlipidemia (Chronic) Postmenopausal (Chronic) Hemangioma (Chronic) Alcohol consumption heavy (Chronic) Mass (Chronic) Atherosclerosis of coronary artery (Chronic) COPD (chronic obstructive pulmonary disease) (Chronic) Medical History Adenocarcinoma, lung Alcohol consumption heavy Atherosclerosis of coronary artery COPD (chronic obstructive pulmonary disease) Fatigue GERD (gastroesophageal reflux disease) Headache Heart palpitations Hemangioma Hyperlipidemia Hypertension 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 activity: other frequency: 3-4 times per week smoking status: Current every day smoker alcohol intake frequency: a few times a week substance use type: does not use MEDS/ALLERGIES Home Medications and Allergies Home Medications Medication Instructions Recorded Confirmed Type albuterol sulfate 90 mcg/actuation 2 puff inhalation Q4H PRN 01/17/19 03/13/22 History aerosol inhaler (Ventolin HFA) Shortness Of Breath Or Wheezing acetaminophen 500 mg tablet 500 mg PO Q6H PRN Headache 07/26/20 03/13/22 History (Tylenol Extra Strength) omeprazole 20 mg capsule,delayed 20 mg PO QDAY 07/26/20 03/13/22 History release ondansetron 8 mg disintegrating 8 mg PO Q8H PRN Nausea 07/26/20 03/13/22 History tablet duloxetine 60 mg capsule,delayed 60 mg PO QDAY #90 caps 07/04/21 03/13/22 Rx release methocarbamol 750 mg tablet 750 mg PO Q6HP PRN Muscle Spasm 07/12/21 03/13/22 Rx #30 tabs potassium chloride 20 mEq/15 mL 20 meq PO QDAY 10/18/21 03/13/22 History oral liquid tramadol 50 mg tablet 50 mg PO Q6H PRN Headache 10/18/21 03/13/22 History metoprolol succinate 25 mg 25 mg PO QDAY #90 tabs 02/13/22 03/13/22 Rx tablet,extended release 24 hr acyclovir 400 mg tablet 1 tab PO BID 03/13/22 03/13/22 History Allergies Allergy/AdvReac Type Severity Reaction Status Date / Time No Known Drug Allergies Allergy Verified 03/13/22 01:21 EXAM Constitutional Vitals: Temp Pulse Resp BP Pulse Ox O2 Del Method O2 Flow Rate 98.1 F 104 H 18 153/88 99 1 03/13/22 01:14 03/13/22 07:00 03/13/22 01:26 03/13/22 07:00 03/13/22 07:00 03/13/22 02:55 03/13/22 02:55 Exam: General: Alert, Awake, No acute Distress Eyes/N/T: EOMI, PERRL, Head/Neck: neck supple, normocephalic atraumatic CV: RRR, No murmurs, normal s1/s2 Pulm: Clear b/l, no wheezing/rhonchi/rales, upper airway rhonchi Abd: soft, nontender, +BS x4 Ext: no clubbing/cyanosis/edema Neuro: Alert, no focal deficits, moves all extremities, CN 2-12 grossly intact, sensations intact b/l upper/lower Skin: warm/dry DATA Data Completed and Pending Labs: Labs from last 24 hours 03/13/22 03/13/22 03/13/22 02:33 01:32 01:32 WBC RBC Hgb Hct POC Hct 40.0 MCV MCH MCHC RDW Plt Count MPV Immature Gran % (Auto) Neut % (Auto) Lymph % (Auto) Mills % (Auto) Eos % (Auto) Baso % (Auto) Lymph # (Auto) Mills # (Auto) Eos # (Auto) Baso # (Auto) Immature Gran # Absolute Neutrophils POC Sodium 132 L POC Potassium 3.3 POC Chloride 94 L POC Total CO2 25.0 POC BUN < 3 L POC Creatinine 0.5 L POC Glucose 114 H POC WB Ioniz Calcium 1.01 L Total Creatine Kinase 78 Ethyl Alcohol mg/dL 127.0 Ethyl Alcohol g/dL 0.127 H 03/13/22 01:32 WBC 12.1 H RBC 3.46 L Hgb 13.5 Hct 36.7 POC Hct MCV 106.1 H MCH 39.0 H MCHC 36.8 H RDW 12.5 Plt Count 333 MPV 9.5 Immature Gran % (Auto) 0.6 H Neut % (Auto) 85.6 H Lymph % (Auto) 8.1 L Mills % (Auto) 5.0 Eos % (Auto) 0.2 Baso % (Auto) 0.5 Lymph # (Auto) 0.98 L Mills # (Auto) 0.61 Eos # (Auto) 0.03 Baso # (Auto) 0.06 Immature Gran # 0.07 H Absolute Neutrophils 10.39 H POC Sodium POC Potassium POC Chloride POC Total CO2 POC BUN POC Creatinine POC Glucose POC WB Ioniz Calcium Total Creatine Kinase Ethyl Alcohol mg/dL Ethyl Alcohol g/dL A/P Narrative A/P Narrative: A: #Left hip Fx: #COPD(not on home oxygen): #Alcohol use disorder with Intoxication #Tobacco use disorder: #GERD: #h/o Lung CA w/mets to brain s/p Right lobectomy was on palliative pembrolizumab, ?still on #Hyponatremia: Plan: -Ortho -IVF while NPO -Replete electrolytes as needed -CIWA scoring to monitor for alcohol withdrawal -PT/OT -cont home BB -Smoking cessation counseling > 3 minutes -CM for placement -ppx: SCD and post-op per Ortho / home ppi CODE STATUS: DNR/DNI Time Spent With Patient Time: Total time spent is greater than 50% in coordination of care (as documented) at patient's floor/unit and/or counseling patient: Total time spent with greater than 50% in coordination of care (as documented) at patient's floor/unit and/or counseling patient:: Greater than 70 minutes
[2022-03-13] MEDS ORDERED: hydrALAZINE 20 MG/ML VIAL IV PRN (09:02)
[2022-03-13] MEDS ORDERED: SENNOSIDES 1 TABLET PO PRN (09:02)
[2022-03-13] MEDS ORDERED: POTASSIUM CHLORIDE 20 MEQ TABLET PO PRN ×2 (09:02)
[2022-03-13] MEDS ORDERED: LABETALOL 5 MG/ML ML IV PRN (09:02)
[2022-03-13] MEDS ORDERED: POLYETHYLENE GLYCOL 3350 17 GM PACKET PO PRN (09:02)
[2022-03-13] MEDS ORDERED: IPRATROPIUM/ALBUTEROL 3 ML AMPUL.NEB NEB PRN ×2 (09:02→15:53)
[2022-03-13] MEDS ORDERED: MAGNESIUM SULFATE 2 GM/50 ML BAG IV PRN (09:02)
[2022-03-13] MEDS ORDERED: POTASSIUM CHLORIDE 40 MEQ in DEXTROSE 5% IN WATER 500 ML IV PRN (09:02)
[2022-03-13] MEDS ORDERED: chlordiazePOXIDE 25 MG CAPSULE PO PRN (09:06)
[2022-03-13] MEDS ORDERED: cloNIDine HCL 0.1 MG TABLET PO PRN (09:06)
[2022-03-13] MEDS ORDERED: LORazepam 2 MG/ML VIAL IV PRN (09:06)
[2022-03-13] MEDS ORDERED: METHOCARBAMOL 750 MG TABLET PO PRN (09:07)
[2022-03-13] MEDS ORDERED: morphine 2 MG/ML VIAL IV PRN (09:07)
--- NOTE | 2022-03-13 09:49 | Cat Scan Report ---
CLINICAL INFORMATION: History of lung carcinoma and brain metastasis treated with chemoradiation. Trauma COMPARISON: Brain MRI 01/09/2022 TECHNIQUE: 2.5 mm helical slices were obtained in the skull base to vertex. Following reconstruction, axial reformatted images were reviewed at bone and parenchymal windows. The exam was performed using radiation dose optimization techniques including, but not limited to, automated exposure control, adjustment of the mA and/or kV according to patient size and use of iterative reconstruction technique. FINDINGS: The ventricles, sulci, fissures, and cisterns are symmetrically enlarged compatible with mild atrophy. No extra-axial fluid collections are identified. Moderate patchy low-attenuation in the centrum semiovale is suggestive of chronic ischemia and this was also noted on prior MRI and may be related to chemotherapy.. There is no evidence of hemorrhage, mass effect, or edema. Bone windows show no osseous abnormality. IMPRESSION: Mild atrophy with chronic ischemia in the deep cerebral white matter. No intracerebral hemorrhage or other posttraumatic change. No evidence of recurrent metastases on the basis of this noncontrast CT Interpreted and Authenticated by: Juan Jose Olivia 03/13/22
[2022-03-13] MEDS: PANTOPRAZOLE 40 MG VIAL IV SCH (09:51)
[2022-03-13] MEDS: MULTIVIT,THER IRON,CA,FA & MIN 1 TABLET PO SCH (09:52)
[2022-03-13] MEDS: DULoxetine 30 MG CAPSULE PO SCH (09:52)
[2022-03-13] MEDS: FOLIC ACID 1 MG TABLET PO SCH (09:52)
[2022-03-13 10:05] LABS: ALT/SGPT 23 U/L (<40); AST/SGOT 28 U/L (<32); Albumin 3.6 gm/dL (3.2-5.2); Albumin/Globulin Ratio 1.4 (1.0-2.3); Alkaline Phosphatase 212 U/L (39-117); Bilirubin,Direct 0.3 mg/dL (<0.3); Bilirubin,Total 0.8 mg/dL (0.1-1.0); Blood Urea Nitrogen 3 mg/dL (6-20); Calcium 8.5 mg/dL (8.6-10.4); Carbon Dioxide 26 mmol/L (22-30); Chloride 92 mmol/L (96-108); Globulin 2.6 gm/dL (2.2-3.7); Glomerular Filtration Rate 113; Glucose 105 mg/dL (70-105); Lactate Dehydrogenase 258 U/L (135-225); Phosphorous 3.1 mg/dL (2.5-4.5); Triglycerides 105 mg/dL (<150); Uric Acid 3.8 mg/dL (2.5-8.0)
[2022-03-13] MEDS: THIAMINE 100 MG in 0.9 % SODIUM CHLORIDE 50 ML IV SCH (10:59)
[2022-03-13] MEDS: 0.9 % SODIUM CHLORIDE 1,000 ML IV SCH (11:11)
[2022-03-13] MEDS: SODIUM CHLORIDE 1 GM TABLET PO SCH ×4 (11:17→22:19)
[2022-03-13] MEDS ORDERED: SCOPOLAMINE 1 PATCH PATCH TOPICAL PRN (12:23)
--- NOTE | 2022-03-13 13:01 | Cat Scan Report ---
CLINICAL INFORMATION: Trauma now with left hip pain COMPARISON: Abdomen and pelvic CT 09/29/2020 TECHNIQUE: 0.625 mm helical slices were obtained from the mid L4 through the subtrochanteric regions. Following reconstruction, 2.5 mm sagittal, coronal and axial reformations were processed. The exam was reviewed in bone and soft tissue windows. The exam was performed using radiation dose optimization techniques including, but not limited to, automated exposure control, adjustment of mA and/or kV according to patient size and use of iterative reconstruction technique. FINDINGS: A severely comminuted, acute intertrochanteric fracture of the left hip results in marked coxa valga angulation. Femoral neck is also displaced 1 cm anteriorly with respect to the femoral neck. Old right intertrochanteric fracture, transfixed by gamma nail, is anatomically aligned. Osseous union is incomplete with fracture line persisting in the medial region. No other osseous abnormality. Downward tilt of the right hemipelvis noted. Uterus is anteflexed and normal in size spanning 6 cm x 2 cm. There is a 12 mm partially calcified fibroid in the fundal region. Visualized small/large bowel and appendix are normal.. Urinary bladder unremarkable. No free air, free fluid or adenopathy. IMPRESSION: 1. Moderately comminuted left intertrochanteric fracture resulting in displacement and marked coxa valga deformity 2. ORIF old right intertrochanteric fracture is anatomically aligned but osseous union is incomplete 3. 12 mm partially calcified fibroid in the uterine fundus stable Interpreted and Authenticated by: Juan Jose Olivia 03/13/22
--- NOTE | 2022-03-13 13:24 | EKG ---
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 Measurements Intervals Bishop Rate: 103 P: 76 UT: 168 QRS: 41 QRSD: 88 T: 36 QT: 369 QTc: 483 Interpretive Statements Sinus tachycardia Biatrial enlargement Electronically Signed On 03-13-2022 13:24:26 PST by Juan Jose Christina M.D. /store/[email or web address]/[id number]
[2022-03-13 14:11] LABS: Sodium, Urine Random 120 mmol/L
[2022-03-13 14:26] LABS: Osmolality,Urine 464 mOSM/kg (80-1000)
[2022-03-13] MEDS ORDERED: PROPOFOL 200 MG/20 ML VIAL IV ONE (15:24)
[2022-03-13] MEDS ORDERED: TRANEXAMIC ACID 1,000 MG/10 ML VIAL ONE (15:24)
[2022-03-13] MEDS ORDERED: ONDANSETRON 4 MG/2 ML VIAL ONE (15:24)
[2022-03-13] MEDS ORDERED: PHENYLephrine 1 MG/10 ML SYRINGE (ANEST) ONE (15:24)
[2022-03-13] MEDS ORDERED: KETAMINE 50 MG/ML Syringe (ANEST) IV ONE (15:24)
[2022-03-13] MEDS ORDERED: DEXAMETHASONE 10 MG/ML VIAL ONE (15:24)
[2022-03-13] MEDS ORDERED: MAGNESIUM SULFATE 2 GM/50 ML BAG IV ONE (15:24)
[2022-03-13] MEDS ORDERED: HYDROmorphone 1 MG/ML SYRINGE ONE (15:24)
[2022-03-13] MEDS ORDERED: ePHEDrine 50 MG/5 ML SYRINGE (ANEST) IV ONE (15:24)
[2022-03-13] MEDS ORDERED: LIDOCAINE HCL/PF 100 MG/5 ML SYRINGE IV ONE (15:24)
[2022-03-13] MEDS ORDERED: ceFAZolin 2 GM in DEXTROSE 5% IN WATER 50 ML IV SCH (15:30)
[2022-03-13] MEDS ORDERED: MEPERIDINE 25 MG/ML VIAL IV PRN (15:53)
[2022-03-13] MEDS ORDERED: LACTATED RINGERS 250 ML IV PRN (15:53)
[2022-03-13] MEDS ORDERED: PROMETHAZINE 25 MG/ML VIAL IV PRN (15:53)
[2022-03-13] MEDS ORDERED: diphenhydrAMINE 50 MG/ML VIAL IV PRN (15:53)
[2022-03-13] MEDS ORDERED: METHOCARBAMOL 1,000 MG/10 ML VIAL IV PRN (15:53)
[2022-03-13] MEDS ORDERED: fentaNYL 100 MCG/2 ML VIAL IV PRN (15:53)
[2022-03-13] MEDS ORDERED: LACTATED RINGERS 1,000 ML IV SCH (16:00)
[2022-03-13] MEDS ORDERED: ACETAMINOPHEN 750 MG/75 ML BAG IV ONE (16:35)
[2022-03-13] MEDS: 0.9 % SODIUM CHLORIDE 10 ML SYRINGE IV SCH ×2 (18:06→21:59)
[2022-03-13] MEDS: DOCUSATE SODIUM 100 MG CAPSULE PO SCH ×3 (21:14→22:19)
[2022-03-13 21:53] LABS: Blood Urea Nitrogen 4 mg/dL (6-20); Calcium 8.3 mg/dL (8.6-10.4); Carbon Dioxide 24 mmol/L (22-30); Chloride 95 mmol/L (96-108); Glomerular Filtration Rate 105; Glucose 150 mg/dL (70-105)
[2022-03-14] MEDS: HYDROcodone/APAP 5/325MG TABLET PO PRN ×2 (02:49→20:12)
--- NOTE | 2022-03-14 02:55 | XRay Report ---
CLINICAL INFORMATION: ORIF intertrochanteric fracture left hip COMPARISON: Preoperative pelvic CT 03/13/2022 FINDINGS: Multiple digital images from the OR show left intertrochanteric fracture restored to anatomic alignment and transfixed by gamma nail. Left hip joint normal in width and alignment. Total fluoroscopy time 0.6 minutes IMPRESSION: ORIF intertrochanteric fracture left hip anatomic alignment. Interpreted and Authenticated by: Juan Jose Olivia 03/14/22
[2022-03-14] MEDS: 0.9 % SODIUM CHLORIDE 10 ML SYRINGE IV SCH ×3 (05:27→20:15)
[2022-03-14 07:01] LABS: ALT/SGPT 20 U/L (<40); AST/SGOT 25 U/L (<32); Albumin/Globulin Ratio 1.2 (1.0-2.3); Alkaline Phosphatase 172 U/L (39-117); Bilirubin,Direct < 0.2 mg/dL (0-0.3); Bilirubin,Total 0.5 mg/dL (0.1-1.0); Blood Urea Nitrogen 5 mg/dL (6-20); Calcium 8.5 mg/dL (8.6-10.4); Carbon Dioxide 28 mmol/L (22-30); Chloride 100 mmol/L (96-108); Globulin 2.5 gm/dL (2.2-3.7); Glomerular Filtration Rate 105; Glucose 127 mg/dL (70-105); Lactate Dehydrogenase 200 U/L (135-225); Phosphorous 2.4 mg/dL (2.5-4.5); Triglycerides 58 mg/dL (<150); Uric Acid 3.1 mg/dL (2.5-8.0)
--- NOTE | 2022-03-14 07:13 | Orthopedic Progress Note ---
SUBJECTIVE Subjective Patient information: Note initiated : 03/14/22 at 7:11 am Service Date, if different from initiated Date: [] Patient: Lyndsay Gonzalez 62 y/o F admitted on 03/13/22 for lt hip pain. Chief Complaint: [Pt is stable this morning on post operative day without any significant concerns or complaints. Patients vital signs have remained stable. Patients dressing is dry and is grossly intact from a neurovascular and motor standpoint. Patients 10 point ROS is otherwise negative. ] Constitutional Vitals: Vital Signs Temp Pulse Resp BP Pulse Ox O2 Del Method O2 Flow Rate 98.4 F 107 H 20 141/97 93 1 03/14/22 04:15 03/14/22 04:15 03/14/22 04:15 03/14/22 04:15 03/14/22 04:15 03/14/22 04:15 03/14/22 04:15 Period Temp Pulse Resp BP Sys/Soria Pulse Ox O2 Del Method O2 Flow Rate Last 24 Hr 97.7 F-98.6 F 81-108 10-27 70-179/48-108 89-100 Nasal Cannula- Simple Mask 1-10 Intake and Output 03/13/22 03/14/22 03/14/22 19:59 03:59 11:59 Intake Total 3896 Output Total 1000 650 Balance 2896 -650 Weight 110 lb 11.2 oz Intake & Output: Intake & Output 03/13/22 03/14/22 03/14/22 19:59 03:59 11:59 Intake Total 3896 Output Total 1000 650 Balance 2896 -650 Weight 110 lb 11.2 oz Intake: IV 2746 Sodium Chloride 0.9% 1,000 ml @ 2000 Wide Open IV BOLUS ONE Rx#: [id number] Potassium Chloride 40 Meq In 520 Dextrose 5% in Water 500 ml @ 130 mls/hr IV UD PRN Rx#: [id number] Vitamin B1 100 mg In Sodium 51 Chloride 0.9% 50 ml @ 50 mls/hr IV DAILY CARRIE Rx#:[id number] Ancef 2 gm In Dextrose 5% in 50 Water 50 ml @ 100 mls/hr IV PREOP CARRIE Rx#:[id number] IV - Manual Only 1150 Output: Urine Catheter Amount 800 650 Estimated Blood Loss 200 Other: Urine Appearance Clear Clear Urine Color Dark Yellow Dark Yellow Extremities Exam Extremities exam: Present normal capillary refill, normal inspection, Foot pink and warm and neurovascular intact OBJ DATA Labs CBC & Chem 7: 03/13/22 01:32 03/14/22 05:14 Labs: Abnormal Lab Results 03/14/22 03/13/22 03/13/22 05:14 20:35 08:45 WBC RBC MCV MCH MCHC Immature Gran % (Auto) Neut % (Auto) Lymph % (Auto) Lymph # (Auto) Immature Gran # Absolute Neutrophils POC Sodium Sodium 131 L Potassium POC Chloride Chloride 95 L POC BUN BUN 5 L 4 L Creatinine 0.5 L 0.5 L POC Creatinine Glucose 127 H 150 H POC Glucose Osmolality 267 L Calcium 8.5 L 8.3 L POC WB Ioniz Calcium Phosphorus 2.4 L Magnesium Direct Bilirubin GGT 82 H Alkaline Phosphatase 172 H Lactate Dehydrogenase Total Protein 5.5 L Albumin 3.0 L Ethyl Alcohol g/dL 03/13/22 03/13/22 03/13/22 08:41 02:33 01:32 WBC RBC MCV MCH MCHC Immature Gran % (Auto) Neut % (Auto) Lymph % (Auto) Lymph # (Auto) Immature Gran # Absolute Neutrophils POC Sodium 132 L Sodium 130 L Potassium 2.9 L* POC Chloride 94 L Chloride 92 L POC BUN < 3 L BUN 3 L Creatinine 0.4 L POC Creatinine 0.5 L Glucose POC Glucose 114 H Osmolality Calcium 8.5 L POC WB Ioniz Calcium 1.01 L Phosphorus Magnesium 1.2 L Direct Bilirubin 0.3 H GGT 110 H Alkaline Phosphatase 212 H Lactate Dehydrogenase 258 H Total Protein Albumin Ethyl Alcohol g/dL 0.127 H 03/13/22 01:32 WBC 12.1 H RBC 3.46 L MCV 106.1 H MCH 39.0 H MCHC 36.8 H Immature Gran % (Auto) 0.6 H Neut % (Auto) 85.6 H Lymph % (Auto) 8.1 L Lymph # (Auto) 0.98 L Immature Gran # 0.07 H Absolute Neutrophils 10.39 H POC Sodium Sodium Potassium POC Chloride Chloride POC BUN BUN Creatinine POC Creatinine Glucose POC Glucose Osmolality Calcium POC WB Ioniz Calcium Phosphorus Magnesium Direct Bilirubin GGT Alkaline Phosphatase Lactate Dehydrogenase Total Protein Albumin Ethyl Alcohol g/dL Meds: Medications Acetaminophen (Acetaminophen 325 Mg Tablet) 650 mg PO Q6HP PRN; Protocol PRN Reason: Per Pain Protocol/Fever > 101 Hydrocodone Bitart/Acetaminophen (Hydrocodone/Apap 5/325mg Tablet) 1 tab PO Q4HP PRN PRN Reason: PAIN LEVEL 3-6 Last Admin: 03/14/22 02:49 Dose: 1 tab Albuterol/Ipratropium (Ipratropium/Albuterol 3 Ml Ampul.Neb) 3 ml NEB Q4HP PRN PRN Reason: Shortness Of Breath Chlordiazepoxide HCl (Chlordiazepoxide 25 Mg Capsule) 25 mg PO UD PRN; Protocol PRN Reason: Alcohol Withdrawal/Assess CIWA Clonidine HCl (Clonidine Hcl 0.1 Mg Tablet) 0.1 mg PO Q4HP PRN PRN Reason: ALC Docusate Sodium (Docusate Sodium 100 Mg Capsule) 100 mg PO BID [facility] Last Admin: 03/13/22 22:19 Dose: 100 mg Duloxetine HCl (Duloxetine 30 Mg Capsule) 60 mg PO QDAY [facility] Last Admin: 03/13/22 09:52 Dose: 60 mg Folic Acid (Folic Acid 1 Mg Tablet) 1 mg PO DAILY [facility] Last Admin: 03/13/22 09:52 Dose: 1 mg Hydralazine HCl (Hydralazine 20 Mg/Ml Vial) 0 mg IV Q2HP PRN PRN Reason: Hypertension Potassium Chloride 40 meq/ (Dextrose) 520 mls @ 130 mls/hr IV UD PRN PRN Reason: Potassium < 3 Last Infusion: 03/13/22 18:08 Dose: Infused Magnesium Sulfate (Magnesium Sulfate) 2 gm in 50 mls @ 50 mls/hr IV UD PRN PRN Reason: Magnesium </= 1.6 Last Infusion: 03/13/22 14:28 Dose: Infused Thiamine HCl 100 mg/ Sodium (Chloride) 51 mls @ 50 mls/hr IV DAILY [facility] Last Infusion: 03/13/22 12:40 Dose: Infused Sodium Chloride (Sodium Chloride 0.9%) 1,000 mls @ 70 mls/hr IV .[id number] [facility] Last Admin: 03/13/22 11:11 Dose: 70 mls/hr Iron Carb/Multivit/Bottle Booth Attendant/Folic Acid (Multivit,Ther Iron,Ca,Fa & Min 1 Tablet) 1 tab PO DAILY [facility] Last Admin: 03/13/22 09:52 Dose: 1 tab Labetalol HCl (Labetalol 5 Mg/Ml Ml) 0 mg IV Q2HP PRN PRN Reason: Hypertension Last Admin: 03/13/22 12:04 Dose: 20 mg Lorazepam (Lorazepam 2 Mg/Ml Vial) 0 mg IV UD PRN; Protocol PRN Reason: Alcohol Withdrawal/Assess CIWA Methocarbamol (Methocarbamol 750 Mg Tablet) 750 mg PO Q6HP PRN PRN Reason: Muscle Spasm Metoprolol Succinate (Metoprolol Succinate 25 Mg Tab.Xl.24h) 25 mg PO QDAY [facility] Morphine Sulfate (Morphine 2 Mg/Ml Vial) 1 - 3 mg IV Q3HP PRN; Protocol PRN Reason: Per Pain Protocol Last Admin: 03/13/22 11:18 Dose: 2 mg Naloxone HCl (Naloxone Hcl 0.4 Mg/Ml Vial) 0.1 mg IV Q2MIN PRN PRN Reason: Opiate Reversal Ondansetron HCl (Ondansetron 4 Mg/2 Ml Vial) 4 mg IV Q4HP PRN PRN Reason: Nausea And Vomiting Pantoprazole Sodium (Pantoprazole 40 Mg Vial) 40 mg IV QAMAC [facility] Last Admin: 03/13/22 09:51 Dose: 40 mg Polyethylene Glycol (Polyethylene Glycol 3350 17 Gm Packet) 17 gm PO DAILYP PRN PRN Reason: Constipation Potassium Chloride (Potassium Chloride 20 Meq Tablet) 40 meq PO UD PRN PRN Reason: Potssium is 3-3.5 Potassium Chloride (Potassium Chloride 20 Meq Tablet) 40 meq PO UD PRN PRN Reason: Potassium < 3 Last Admin: 03/13/22 11:18 Dose: 40 meq Senna (Sennosides 1 Tablet) 2 tab PO DAILYP PRN PRN Reason: Constipation Sodium Chloride (0.9 % Sodium Chloride 10 Ml Syringe) 10 ml IV Q8 [facility] Last Admin: 03/14/22 05:27 Dose: Not Given A/P Narrative A/P Narrative: The patient has been educated regarding dressing care, , restrictions, and follow up appointments. The patient has had all necessary DME prescribed. The patient has remained relatively stable during their hospital course. Pt is cleared by Ortho for home discharge with Home health reccomendations and Physical therapy. F/u 2 wks in our office for staple removal. Pt can discharge when cleared by hospitalist. Time Spent With Patient Time: Total time spent is greater than 50% in coordination of care (as documented) at patient's floor/unit and/or counseling patient: Total time spent with greater than 50% in coordination of care (as documented) at patient's floor/unit and/or counseling patient:: less than 15 minutes Critical Care Time: No
--- NOTE | 2022-03-14 07:14 | Consultation ---
DATE OF CONSULTATION: 03/13/2022 HISTORY OF PRESENT ILLNESS: The patient was admitted to the hospital last night. This is a very pleasant 62-year-old female who had a same level fall, sustaining an intertrochanteric hip fracture on the left side with a significant medical history of alcoholism, prior right hip fracture, sinus tachycardia, lung cancer, headache, fatigue, hypertension, history of lobectomy for lung cancer, and chronic fatigue. ALLERGIES: THE PATIENT LISTS NO KNOWN DRUG ALLERGIES. PAST SURGICAL HISTORY: Prior surgeries include right intertrochanteric hip fracture treated by Dr. Weaver with a gamma nail. PHYSICAL EXAMINATION: GENERAL: Very pleasant female, 5 feet 5 inches, 108 pounds. Well kept. Alert, cooperative and gives a good history of the events surrounding her injury. LUNGS: Evaluated with expiratory wheezes with a slight cough. CARDIOVASCULAR: Tachy rate of about 90 but regular. ABDOMEN: Soft, thin, nontender. EXTREMITIES: Left hip is shortened and internally rotated. The foot is pink and warm and she is able to move the foot up and down on both lower extremities. The foot is cold but brisk capillary refill. IMAGING: X-rays of the left hip, AP pelvis and a CT scan shows an intertrochanteric hip fracture extending into the greater trochanter but was still fairly good bone quality without tumors. DIAGNOSIS: Left intertrochanteric hip fracture. PLAN: Treatment will be a gamma nail. The patient understands the risks and the benefits and agrees to proceed, consent form was signed to this effect. The risks, some of which are bleeding because of her alcoholism, needing additional surgeries for hardware removal or even bone grafting to help the fracture heal, possible heart attack, or even strokes are possible. She agrees to proceed, understanding the above-mentioned risks. RBH:bairon Job ID: [id number] Doc ID: [id number] Ivan Beaulieu MD
--- NOTE | 2022-03-14 07:41 | Internal Med Progress Note ---
SUBJECTIVE Subjective Patient information: Note initiated : 03/14/22 at 7:37 am Service Date, if different from initiated Date: [] Patient: Lyndsay Gonzalez a 62 y/o F admitted on 03/13/22 for lt hip pain. Chief Complaint: [] Interval history: History of present illness: Ms. Gonzalez is a 62 year old F Who fell going to the bathroom. Crawled to the phone with for help complaining of left hip pain. She had been drinking as well. She was noted to be intoxicated in the ED. blood alcohol level in the ED 127. She fell and broke her right hip in June. Work-up in ED revealed left hip fracture. Dr. Weaver was contacted Patient is drinks she says only 3 times a week and has 2-3 drinks at a time which are usually Coke and run. 03/14 Patient feeling better today after surgery. Hip pain better. No alcohol withdrawal treatment needed. Sodium better today. Review of Systems: denies headache/fever/chills/nausea/vomiting/chest or abdominal pain/co ugh/dyspnea/diarrhea. Otherwise see above. Constitutional Vitals: Vital Signs Temp Pulse Resp BP Pulse Ox O2 Del Method O2 Flow Rate 98.4 F 107 H 20 141/97 93 1 03/14/22 04:15 03/14/22 04:15 03/14/22 04:15 03/14/22 04:15 03/14/22 04:15 03/14/22 04:15 03/14/22 04:15 Period Temp Pulse Resp BP Sys/Soria Pulse Ox O2 Del Method O2 Flow Rate Last 24 Hr 97.7 F-98.6 F 81-108 10-27 70-179/48-108 89-100 Nasal Cannula- Simple Mask 1-10 Intake and Output 03/13/22 03/14/22 03/14/22 19:59 03:59 11:59 Intake Total 3896 Output Total 1000 650 Balance 2896 -650 Weight 50.213 kg Intake & Output: Intake & Output 03/13/22 03/14/22 03/14/22 19:59 03:59 11:59 Intake Total 3896 Output Total 1000 650 Balance 2896 -650 Weight 50.213 kg Intake: IV 2746 Sodium Chloride 0.9% 1,000 ml @ 2000 Wide Open IV BOLUS ONE Rx#: [id number] Potassium Chloride 40 Meq In 520 Dextrose 5% in Water 500 ml @ 130 mls/hr IV UD PRN Rx#: [id number] Vitamin B1 100 mg In Sodium 51 Chloride 0.9% 50 ml @ 50 mls/hr IV DAILY [facility] Rx#:[id number] Ancef 2 gm In Dextrose 5% in 50 Water 50 ml @ 100 mls/hr IV PREOP CARRIE Rx#:[id number] IV - Manual Only 1150 Output: Urine Catheter Amount 800 650 Estimated Blood Loss 200 Other: Urine Appearance Clear Clear Urine Color Dark Yellow Dark Yellow Exam: General: Alert, Awake, No acute Distress Eyes/N/T: EOMI, , Head/Neck: neck supple, CV: RRR, No murmurs, Pulm: Clear b/l, no wheezing/rhonchi/rales, Abd: soft, nontender, +BS x4 Ext: no clubbing/cyanosis/edema Neuro: Alert, no focal deficits, moves all extremities, Skin: warm/dry OBJ DATA Labs CBC & Chem 7: 03/13/22 01:32 03/14/22 05:14 Labs: Abnormal Lab Results 03/14/22 03/13/22 03/13/22 05:14 20:35 08:45 WBC RBC MCV MCH MCHC Immature Gran % (Auto) Neut % (Auto) Lymph % (Auto) Lymph # (Auto) Immature Gran # Absolute Neutrophils POC Sodium Sodium 131 L Potassium POC Chloride Chloride 95 L POC BUN BUN 5 L 4 L Creatinine 0.5 L 0.5 L POC Creatinine Glucose 127 H 150 H POC Glucose Osmolality 267 L Calcium 8.5 L 8.3 L POC WB Ioniz Calcium Phosphorus 2.4 L Magnesium Direct Bilirubin GGT 82 H Alkaline Phosphatase 172 H Lactate Dehydrogenase Total Protein 5.5 L Albumin 3.0 L Ethyl Alcohol g/dL 03/13/22 03/13/22 03/13/22 08:41 02:33 01:32 WBC RBC MCV MCH MCHC Immature Gran % (Auto) Neut % (Auto) Lymph % (Auto) Lymph # (Auto) Immature Gran # Absolute Neutrophils POC Sodium 132 L Sodium 130 L Potassium 2.9 L* POC Chloride 94 L Chloride 92 L POC BUN < 3 L BUN 3 L Creatinine 0.4 L POC Creatinine 0.5 L Glucose POC Glucose 114 H Osmolality Calcium 8.5 L POC WB Ioniz Calcium 1.01 L Phosphorus Magnesium 1.2 L Direct Bilirubin 0.3 H GGT 110 H Alkaline Phosphatase 212 H Lactate Dehydrogenase 258 H Total Protein Albumin Ethyl Alcohol g/dL 0.127 H 03/13/22 01:32 WBC 12.1 H RBC 3.46 L MCV 106.1 H MCH 39.0 H MCHC 36.8 H Immature Gran % (Auto) 0.6 H Neut % (Auto) 85.6 H Lymph % (Auto) 8.1 L Lymph # (Auto) 0.98 L Immature Gran # 0.07 H Absolute Neutrophils 10.39 H POC Sodium Sodium Potassium POC Chloride Chloride POC BUN BUN Creatinine POC Creatinine Glucose POC Glucose Osmolality Calcium POC WB Ioniz Calcium Phosphorus Magnesium Direct Bilirubin GGT Alkaline Phosphatase Lactate Dehydrogenase Total Protein Albumin Ethyl Alcohol g/dL Meds: Medications Acetaminophen (Acetaminophen 325 Mg Tablet) 650 mg PO Q6HP PRN; Protocol PRN Reason: Per Pain Protocol/Fever > 101 Hydrocodone Bitart/Acetaminophen (Hydrocodone/Apap 5/325mg Tablet) 1 tab PO Q4HP PRN PRN Reason: PAIN LEVEL 3-6 Last Admin: 03/14/22 02:49 Dose: 1 tab Albuterol/Ipratropium (Ipratropium/Albuterol 3 Ml Ampul.Neb) 3 ml NEB Q4HP PRN PRN Reason: Shortness Of Breath Chlordiazepoxide HCl (Chlordiazepoxide 25 Mg Capsule) 25 mg PO UD PRN; Protocol PRN Reason: Alcohol Withdrawal/Assess CIWA Clonidine HCl (Clonidine Hcl 0.1 Mg Tablet) 0.1 mg PO Q4HP PRN PRN Reason: ALC Docusate Sodium (Docusate Sodium 100 Mg Capsule) 100 mg PO BID [facility] Last Admin: 03/13/22 22:19 Dose: 100 mg Duloxetine HCl (Duloxetine 30 Mg Capsule) 60 mg PO QDAY [facility] Last Admin: 03/13/22 09:52 Dose: 60 mg Folic Acid (Folic Acid 1 Mg Tablet) 1 mg PO DAILY [facility] Last Admin: 03/13/22 09:52 Dose: 1 mg Hydralazine HCl (Hydralazine 20 Mg/Ml Vial) 0 mg IV Q2HP PRN PRN Reason: Hypertension Potassium Chloride 40 meq/ (Dextrose) 520 mls @ 130 mls/hr IV UD PRN PRN Reason: Potassium < 3 Last Infusion: 03/13/22 18:08 Dose: Infused Magnesium Sulfate (Magnesium Sulfate) 2 gm in 50 mls @ 50 mls/hr IV UD PRN PRN Reason: Magnesium </= 1.6 Last Infusion: 03/13/22 14:28 Dose: Infused Thiamine HCl 100 mg/ Sodium (Chloride) 51 mls @ 50 mls/hr IV DAILY [facility] Last Infusion: 03/13/22 12:40 Dose: Infused Sodium Chloride (Sodium Chloride 0.9%) 1,000 mls @ 70 mls/hr IV .[id number] [facility] Last Admin: 03/13/22 11:11 Dose: 70 mls/hr Iron Carb/Multivit/[place]/Folic Acid (Multivit,Ther Iron,Ca,Fa & Min 1 Tablet) 1 tab PO DAILY [facility] Last Admin: 03/13/22 09:52 Dose: 1 tab Labetalol HCl (Labetalol 5 Mg/Ml Ml) 0 mg IV Q2HP PRN PRN Reason: Hypertension Last Admin: 03/13/22 12:04 Dose: 20 mg Lorazepam (Lorazepam 2 Mg/Ml Vial) 0 mg IV UD PRN; Protocol PRN Reason: Alcohol Withdrawal/Assess CIWA Methocarbamol (Methocarbamol 750 Mg Tablet) 750 mg PO Q6HP PRN PRN Reason: Muscle Spasm Metoprolol Succinate (Metoprolol Succinate 25 Mg Tab.Xl.24h) 25 mg PO QDAY [facility] Morphine Sulfate (Morphine 2 Mg/Ml Vial) 1 - 3 mg IV Q3HP PRN; Protocol PRN Reason: Per Pain Protocol Last Admin: 03/13/22 11:18 Dose: 2 mg Naloxone HCl (Naloxone Hcl 0.4 Mg/Ml Vial) 0.1 mg IV Q2MIN PRN PRN Reason: Opiate Reversal Ondansetron HCl (Ondansetron 4 Mg/2 Ml Vial) 4 mg IV Q4HP PRN PRN Reason: Nausea And Vomiting Pantoprazole Sodium (Pantoprazole 40 Mg Vial) 40 mg IV QAMAC [facility] Last Admin: 03/13/22 09:51 Dose: 40 mg Polyethylene Glycol (Polyethylene Glycol 3350 17 Gm Packet) 17 gm PO DAILYP PRN PRN Reason: Constipation Potassium Chloride (Potassium Chloride 20 Meq Tablet) 40 meq PO UD PRN PRN Reason: Potssium is 3-3.5 Potassium Chloride (Potassium Chloride 20 Meq Tablet) 40 meq PO UD PRN PRN Reason: Potassium < 3 Last Admin: 03/13/22 11:18 Dose: 40 meq Senna (Sennosides 1 Tablet) 2 tab PO DAILYP PRN PRN Reason: Constipation Sodium Chloride (0.9 % Sodium Chloride 10 Ml Syringe) 10 ml IV Q8 [facility] Last Admin: 03/14/22 05:27 Dose: Not Given A/P Narrative A/P Narrative: A: #Left hip Fx: s/p ORIF (03/13) #COPD(not on home oxygen): #Alcohol use disorder with Intoxication: #Tobacco use disorder: #GERD: #h/o Lung CA w/mets to brain s/p Right lobectomy was on palliative pembrolizumab, ?still on #Electrolyte d/o (hyponatremia/Hypomagnesemia/hypokalemia): improving Plan: -Ortho -d/c IVF -Replete electrolytes as needed -CIWA scoring to monitor for alcohol withdrawal -PT/OT -cont home BB -Smoking cessation counseling -CM for placement -ppx: SCD and post-op per Ortho / home ppi CODE STATUS: DNR/DNI Time Spent With Patient Time: Total time spent is greater than 50% in coordination of care (as documented) at patient's floor/unit and/or counseling patient: Total time spent with greater than 50% in coordination of care (as documented) at patient's floor/unit and/or counseling patient:: 25 - 35 minutes QUALITY VTE Deep Vein Thrombosis/Pulmonary Embolism Present on Admission: No
--- NOTE | 2022-03-14 08:08 | Operative Note ---
DATE OF OPERATION: 03/13/2022 DATE OF PROCEDURE: 03/13/2022 PREOPERATIVE DIAGNOSIS: Left intertrochanteric hip fracture. POSTOPERATIVE DIAGNOSIS: Left intertrochanteric hip fracture. PROCEDURE: Left intertrochanteric hip fracture open reduction and internal fixation with a gamma nail, short. SURGEON: Ivan Beaulieu M.D. COMIC BOOK ARTIST: Reno Watkins PA-C. The expertise and technical skill of this provider were required throughout the case. The PA assisted with preoperative coordination, intraoperative retraction, wound closure, and dressing and splint application, as well as postoperative documentation and care coordination. ANESTHESIA: General LMA anesthesia. ESTIMATED BLOOD LOSS: About 50 mL. COMPLICATIONS: None. IMPLANTS: Size 11 gamma nail with an 85 mm dynamic compression screw and a 35 mm distal locking screw. DISPOSITION: To PACU. DESCRIPTION OF PROCEDURE: The patient was brought to the operating room, put to sleep with general LMA anesthesia on the fracture table. Once asleep, the patient had a closed reduction on the fracture table to bring it in alignment both on AP and lateral views. Using the C-arm images, we were able to align the fracture. At this point, the patient was sterilely prepped and draped. A sterile drape was placed over the patient for the C-arm with the C-arm for lateral viewing. Once these drapes had been applied we then made an incision posterior to the greater trochanter in line with the superior iliac spine 2 inches proximal to the greater trochanter. This inch and a half incision was dissected down to the fascial layer. We identified the greater trochanter and then reduced the fracture and placed a guidewire centrally. Once this was centrally placed, this was reamed to the size for 13 mm proximally and the canal was reamed to 12 mm for the 11 mm nail. Once this was done, we then placed the short gamma nail into place. This was a 125 mm gamma angle, 85 mm in length. This was reamed with the reamer for an 85 mm dynamic compression screw. The screw was placed with good purchase, making sure this was central and inferiorly for the best bone quality. Once this was done, we were able to compress the fracture releasing the traction on the leg and then using the compression portion of the dynamic compression screw, and then locked the screw proximally. The distal portion of the nail was locked with a 35 mm titanium screw. This was predrilled for the 4.0 locking screw. This was a static hole to assist with weightbearing and stabilize the fracture. The 35 mm screw was placed. Images were saved, AP and lateral and there was good purchase of all hardware. We irrigated thoroughly, removed the guides and closed the wound with 2-0 Vicryl and 3-0 Monocryl, and nicola were used superficially for reinforcement. Sterile bandage was applied. Blood loss about 50 mL. No blood products were given. [facility]:anna Job ID: [id number] Doc ID: [id number] Ivan Beaulieu MD
[2022-03-14] MEDS: MULTIVIT,THER IRON,CA,FA & MIN 1 TABLET PO SCH (08:44)
[2022-03-14] MEDS: DOCUSATE SODIUM 100 MG CAPSULE PO SCH ×2 (08:44→20:14)
[2022-03-14] MEDS: METOPROLOL SUCCINATE 25 MG TAB.XL.24H PO SCH (08:44)
[2022-03-14] MEDS: FOLIC ACID 1 MG TABLET PO SCH (08:44)
[2022-03-14] MEDS: DULoxetine 30 MG CAPSULE PO SCH (08:44)
[2022-03-14] MEDS: PANTOPRAZOLE 40 MG VIAL IV SCH (08:45)
[2022-03-14] MEDS: THIAMINE 100 MG in 0.9 % SODIUM CHLORIDE 50 ML IV SCH (08:45)
[2022-03-14] MEDS: 0.9 % SODIUM CHLORIDE 1,000 ML IV SCH (08:48)
[2022-03-14] MEDS: ACETAMINOPHEN 325 MG TABLET PO PRN ×2 (08:52→13:53)
[2022-03-14] MEDS: ASPIRIN 81 MG TAB.CHEW CHEWED SCH ×2 (08:55→20:14)
--- NOTE | 2022-03-14 10:55 | Discharge Summary ---
Discharge Provider Provider IMPORTANT FOLLOW-UP INFORMATION FOR PCP: Patient information: Note initiated : 03/14/22 at 10:54 am Service Date, if different from initiated Date: [] Patient: Lyndsay Gonzalez 62 y/o F admitted on 03/13/22 for lt hip pain. Chief Complaint: [] Date of admission: 03/13/22 09:02 Primary care physician: JERICHO Barron Consults: 03/13/22 Consult to Physician [CONS] Stat Comment: Left hip fracture Consulting Provider: Fly Weaver Reason For Exam: Physician to Consult Consult to Physician [CONS] Stat Comment: Left hip fracture Consulting Provider: Ruel Love Reason For Exam: Physician to Consult COURSE Hospital Course Hospital course: History of present illness: Ms. Gonzalez is a 62 year old F Who fell going to the bathroom. Crawled to the phone with for help complaining of left hip pain. She had been drinking as well. She was noted to be intoxicated in the ED. blood alcohol level in the ED 127. She fell and broke her right hip in June. Work-up in ED revealed left hip fracture. Dr. Weaver was contacted Patient is drinks she says only 3 times a week and has 2-3 drinks at a time which are usually Coke and run. 03/14 Patient feeling better today after surgery. Hip pain better. No alcohol withdrawal treatment needed. Sodium better today. A: #Left hip Fx: s/p ORIF (03/13) #COPD(not on home oxygen): #Alcohol use disorder with Intoxication: #Tobacco use disorder: #GERD: #h/o Lung CA w/mets to brain s/p Right lobectomy was on palliative pembrolizumab, ?still on #Electrolyte d/o (hyponatremia/Hypomagnesemia/hypokalemia): improving Discharge diagnosis: Left hip fracture COPD alcohol intoxication Secondary discharge diagnosis: Tobacco abuse GERD history of lung cancer electrolyte disturbance Time Spent with Patient Time attestation: Total time spent providing and/or coordinating discharge services: Time spent: Greater than 30 minutes EXAM Constitutional Vitals: Temp Pulse Resp BP Pulse Ox O2 Del Method O2 Flow Rate 98.6 F 109 H 20 152/88 96 1 03/14/22 08:00 03/14/22 08:00 03/14/22 08:00 03/14/22 08:00 03/14/22 08:00 03/14/22 08:00 03/14/22 08:00 Discharge Data Data Completed and Pending Labs on day of discharge: Labs from last 24 hours 03/14/22 03/13/22 03/13/22 05:14 20:35 12:45 Sodium 138 131 L Potassium 4.3 3.8 Chloride 100 95 L Carbon Dioxide 28 24 Anion Gap 10.0 12.0 BUN 5 L 4 L Creatinine 0.5 L 0.5 L GFR Calculation 105 105 Glucose 127 H 150 H Osmolality Uric Acid 3.1 Calcium 8.5 L 8.3 L Phosphorus 2.4 L Magnesium 2.0 2.3 Total Bilirubin 0.5 Direct Bilirubin < 0.2 GGT 82 H AST 25 ALT 20 Alkaline Phosphatase 172 H Lactate Dehydrogenase 200 Total Protein 5.5 L Albumin 3.0 L Globulin 2.5 Albumin/Globulin Ratio 1.2 Triglycerides 58 Urine Osmolality 464 Ur Random Sodium 120 03/13/22 08:45 Sodium Potassium Chloride Carbon Dioxide Anion Gap BUN Creatinine GFR Calculation Glucose Osmolality 267 L Uric Acid Calcium Phosphorus Magnesium Total Bilirubin Direct Bilirubin GGT AST ALT Alkaline Phosphatase Lactate Dehydrogenase Total Protein Albumin Globulin Albumin/Globulin Ratio Triglycerides Urine Osmolality Ur Random Sodium Discharge Plan Patient/Caregiver Discharge Instructions Activity: increase activity as tolerated Diet: Regular Diet Prescriptions: New aspirin [Adult Low Dose Aspirin] 81 mg Tablet,Delayed Release (Dr/Ec) 81 mg PO BID Qty: 60 0RF Continued omeprazole 20 mg capsule,delayed release(DR/EC) 20 mg PO QDAY acetaminophen [Tylenol Extra Strength] 500 mg tablet 500 mg PO Q6H PRN (Reason: Headache) ondansetron 8 mg tablet,disintegrating 8 mg PO Q8H PRN (Reason: Nausea) duloxetine 60 mg capsule,delayed release(DR/EC) 60 mg PO QDAY Qty: 90 1RF potassium chloride 20 mEq/15 mL liquid 20 meq PO QDAY tramadol 50 mg tablet 50 mg PO Q6H PRN (Reason: Headache) metoprolol succinate 25 mg tablet extended release 24 hr 25 mg PO QDAY Qty: 90 0RF albuterol sulfate [Ventolin HFA] 90 mcg/actuation HFA aerosol inhaler 2 puff INHALATION Q4H PRN (Reason: Shortness Of Breath Or Wheezing) methocarbamol 750 mg Tablet 750 mg PO Q6HP PRN (Reason: Muscle Spasm) Qty: 30 0RF acyclovir 400 mg tablet 1 tab PO BID Follow Up Plan Follow up with: Cecilia Calderon ARNP [Primary Care Provider] - Patient Disposition: Xfer SNF Prognosis: Fair Rehab Potential: Fair I certify that the patient requires SNF services: Yes Overall status at discharge: patient is progressing back to baseline QUALITY VTE Deep Vein Thrombosis/Pulmonary Embolism Present on Admission: No
[2022-03-15] MEDS: HYDROcodone/APAP 5/325MG TABLET PO PRN ×5 (01:22→22:36)
[2022-03-15] MEDS: 0.9 % SODIUM CHLORIDE 10 ML SYRINGE IV SCH ×3 (05:50→22:00)
[2022-03-15] MEDS: PANTOPRAZOLE 40 MG VIAL IV SCH (07:38)
--- NOTE | 2022-03-15 07:39 | Internal Med Progress Note ---
SUBJECTIVE Subjective Patient information: Note initiated : 03/15/22 at 7:38 am Service Date, if different from initiated Date: [] Patient: Lyndsay Gonzalez a 62 y/o F admitted on 03/13/22 for lt hip pain. Chief Complaint: [] Interval history: History of present illness: Ms. Gonzalez is a 62 year old F Who fell going to the bathroom. Crawled to the phone with for help complaining of left hip pain. She had been drinking as well. She was noted to be intoxicated in the ED. blood alcohol level in the ED 127. She fell and broke her right hip in June. Work-up in ED revealed left hip fracture. Dr. Weaver was contacted Patient is drinks she says only 3 times a week and has 2-3 drinks at a time which are usually Coke and run. 03/14 Patient feeling better today after surgery. Hip pain better. No alcohol withdrawal treatment needed. Sodium better today. 03/15 States legs sore and tight but otherwise pain relatively controlled. No benzo diazepam's needed for withdrawal. Patient heart rate appears to run chronically high, mildly. Review of Systems: denies headache/fever/chills/nausea/vomiting/chest or abdominal pain/cough/dyspnea/diarrhea. Otherwise see above. Constitutional Vitals: Vital Signs Temp Pulse Resp BP Pulse Ox O2 Del Method O2 Flow Rate 98.6 F 104 H 20 130/83 96 1 03/15/22 07:28 03/15/22 07:28 03/15/22 07:28 03/15/22 07:28 03/15/22 07:28 03/15/22 07:28 03/14/22 16:00 Period Temp Pulse Resp BP Sys/Soria Pulse Ox O2 Del Method O2 Flow Rate Last 24 Hr 98.6 F-99.1 F 104-111 18-20 112-152/73-88 90-100 Nasal Cannula-Room Air 1-1 Intake and Output 03/14/22 03/15/22 03/15/22 19:59 03:59 11:59 Intake Total 610 Output Total 300 1050 Balance -300 -440 Weight 50.122 kg Intake & Output: Intake & Output 03/14/22 03/15/22 03/15/22 19:59 03:59 11:59 Intake Total 610 Output Total 300 1050 Balance -300 -440 Weight 50.122 kg Intake: Oral 610 Output: Urine Catheter Amount 300 1050 Other: Meal Dinner Percent of Meal Consumed 50% Feeding Ability Assist with Tray Set Up Urine Appearance Clear Clear Urine Color Yellow Yellow Dark Yellow Urine Odor Strong Exam: General: Alert, Awake, No acute Distress Eyes/N/T: EOMI, , Head/Neck: neck supple, CV: Mildly tacky but regular, No murmurs, Pulm: Clear b/l, no wheezing/rhonchi/rales, Abd: soft, nontender, +BS x4 Ext: no clubbing/cyanosis/edema Neuro: Alert, no focal deficits, moves all extremities, Skin: warm/dry OBJ DATA Labs CBC & Chem 7: 03/13/22 01:32 03/14/22 05:14 Labs: Abnormal Lab Results 03/14/22 03/13/22 03/13/22 05:14 20:35 08:45 WBC RBC MCV MCH MCHC Immature Gran % (Auto) Neut % (Auto) Lymph % (Auto) Lymph # (Auto) Immature Gran # Absolute Neutrophils POC Sodium Sodium 131 L Potassium POC Chloride Chloride 95 L POC BUN BUN 5 L 4 L Creatinine 0.5 L 0.5 L POC Creatinine Glucose 127 H 150 H POC Glucose Osmolality 267 L Calcium 8.5 L 8.3 L POC WB Ioniz Calcium Phosphorus 2.4 L Magnesium Direct Bilirubin GGT 82 H Alkaline Phosphatase 172 H Lactate Dehydrogenase Total Protein 5.5 L Albumin 3.0 L Ethyl Alcohol g/dL 03/13/22 03/13/22 03/13/22 08:41 02:33 01:32 WBC RBC MCV MCH MCHC Immature Gran % (Auto) Neut % (Auto) Lymph % (Auto) Lymph # (Auto) Immature Gran # Absolute Neutrophils POC Sodium 132 L Sodium 130 L Potassium 2.9 L* POC Chloride 94 L Chloride 92 L POC BUN < 3 L BUN 3 L Creatinine 0.4 L POC Creatinine 0.5 L Glucose POC Glucose 114 H Osmolality Calcium 8.5 L POC WB Ioniz Calcium 1.01 L Phosphorus Magnesium 1.2 L Direct Bilirubin 0.3 H GGT 110 H Alkaline Phosphatase 212 H Lactate Dehydrogenase 258 H Total Protein Albumin Ethyl Alcohol g/dL 0.127 H 03/13/22 01:32 WBC 12.1 H RBC 3.46 L MCV 106.1 H MCH 39.0 H MCHC 36.8 H Immature Gran % (Auto) 0.6 H Neut % (Auto) 85.6 H Lymph % (Auto) 8.1 L Lymph # (Auto) 0.98 L Immature Gran # 0.07 H Absolute Neutrophils 10.39 H POC Sodium Sodium Potassium POC Chloride Chloride POC BUN BUN Creatinine POC Creatinine Glucose POC Glucose Osmolality Calcium POC WB Ioniz Calcium Phosphorus Magnesium Direct Bilirubin GGT Alkaline Phosphatase Lactate Dehydrogenase Total Protein Albumin Ethyl Alcohol g/dL Meds: Medications Acetaminophen (Acetaminophen 325 Mg Tablet) 650 mg PO Q6HP PRN; Protocol PRN Reason: Per Pain Protocol/Fever > 101 Last Admin: 03/14/22 13:53 Dose: 650 mg Hydrocodone Bitart/Acetaminophen (Hydrocodone/Apap 5/325mg Tablet) 1 tab PO Q4HP PRN PRN Reason: PAIN LEVEL 3-6 Last Admin: 03/15/22 01:22 Dose: 1 tab Albuterol/Ipratropium (Ipratropium/Albuterol 3 Ml Ampul.Neb) 3 ml NEB Q4HP PRN PRN Reason: Shortness Of Breath Aspirin (Aspirin 81 Mg Tab.Chew) 81 mg CHEWED BID [facility] Last Admin: 03/14/22 20:14 Dose: 81 mg Chlordiazepoxide HCl (Chlordiazepoxide 25 Mg Capsule) 25 mg PO UD PRN; Protocol PRN Reason: Alcohol Withdrawal/Assess CIWA Clonidine HCl (Clonidine Hcl 0.1 Mg Tablet) 0.1 mg PO Q4HP PRN PRN Reason: ALC Docusate Sodium (Docusate Sodium 100 Mg Capsule) 100 mg PO BID [facility] Last Admin: 03/14/22 20:14 Dose: 100 mg Duloxetine HCl (Duloxetine 30 Mg Capsule) 60 mg PO QDAY [facility] Last Admin: 03/14/22 08:44 Dose: 60 mg Folic Acid (Folic Acid 1 Mg Tablet) 1 mg PO DAILY [facility] Last Admin: 03/14/22 08:44 Dose: 1 mg Hydralazine HCl (Hydralazine 20 Mg/Ml Vial) 0 mg IV Q2HP PRN PRN Reason: Hypertension Potassium Chloride 40 meq/ (Dextrose) 520 mls @ 130 mls/hr IV UD PRN PRN Reason: Potassium < 3 Last Infusion: 03/13/22 18:08 Dose: Infused Magnesium Sulfate (Magnesium Sulfate) 2 gm in 50 mls @ 50 mls/hr IV UD PRN PRN Reason: Magnesium </= 1.6 Last Infusion: 03/13/22 14:28 Dose: Infused Thiamine HCl 100 mg/ Sodium (Chloride) 51 mls @ 50 mls/hr IV DAILY [facility] Last Infusion: 03/14/22 10:00 Dose: Infused Iron Carb/Multivit/[place]/Folic Acid (Multivit,Ther Iron,Ca,Fa & Min 1 Tablet) 1 tab PO DAILY [facility] Last Admin: 03/14/22 08:44 Dose: 1 tab Labetalol HCl (Labetalol 5 Mg/Ml Ml) 0 mg IV Q2HP PRN PRN Reason: Hypertension Last Admin: 03/13/22 12:04 Dose: 20 mg Lorazepam (Lorazepam 2 Mg/Ml Vial) 0 mg IV UD PRN; Protocol PRN Reason: Alcohol Withdrawal/Assess CIWA Methocarbamol (Methocarbamol 750 Mg Tablet) 750 mg PO Q6HP PRN PRN Reason: Muscle Spasm Last Admin: 03/14/22 13:53 Dose: 750 mg Metoprolol Succinate (Metoprolol Succinate 25 Mg Tab.Xl.24h) 25 mg PO QDAY [facility] Last Admin: 03/14/22 08:44 Dose: 25 mg Morphine Sulfate (Morphine 2 Mg/Ml Vial) 1 - 3 mg IV Q3HP PRN; Protocol PRN Reason: Per Pain Protocol Last Admin: 03/13/22 11:18 Dose: 2 mg Naloxone HCl (Naloxone Hcl 0.4 Mg/Ml Vial) 0.1 mg IV Q2MIN PRN PRN Reason: Opiate Reversal Ondansetron HCl (Ondansetron 4 Mg/2 Ml Vial) 4 mg IV Q4HP PRN PRN Reason: Nausea And Vomiting Pantoprazole Sodium (Pantoprazole 40 Mg Vial) 40 mg IV QAMAC [facility] Last Admin: 03/14/22 08:45 Dose: 40 mg Polyethylene Glycol (Polyethylene Glycol 3350 17 Gm Packet) 17 gm PO DAILYP PRN PRN Reason: Constipation Potassium Chloride (Potassium Chloride 20 Meq Tablet) 40 meq PO UD PRN PRN Reason: Potssium is 3-3.5 Potassium Chloride (Potassium Chloride 20 Meq Tablet) 40 meq PO UD PRN PRN Reason: Potassium < 3 Last Admin: 03/13/22 11:18 Dose: 40 meq Senna (Sennosides 1 Tablet) 2 tab PO DAILYP PRN PRN Reason: Constipation Sodium Chloride (0.9 % Sodium Chloride 10 Ml Syringe) 10 ml IV Q8 [facility] Last Admin: 03/15/22 05:50 Dose: 10 ml A/P Narrative A/P Narrative: A: #Left hip Fx: s/p ORIF (03/13) #COPD(not on home oxygen): #Alcohol use disorder with Intoxication: #Tobacco use disorder: #GERD: #h/o Lung CA w/mets to brain s/p Right lobectomy was on palliative pembrolizumab, ?still on #Electrolyte d/o (hyponatremia/Hypomagnesemia/hypokalemia): improving Plan: -Ortho -Replete electrolytes as needed -CIWA scoring to monitor for alcohol withdrawal -PT/OT -cont home BB -Smoking cessation counseling -CM for placement -ppx: SCD and post-op per Ortho / home ppi CODE STATUS: DNR/DNI Time Spent With Patient Time: Total time spent is greater than 50% in coordination of care (as documented) at patient's floor/unit and/or counseling patient: Total time spent with greater than 50% in coordination of care (as documented) at patient's floor/unit and/or counseling patient:: 35 - 50 minutes QUALITY VTE Deep Vein Thrombosis/Pulmonary Embolism Present on Admission: No
[2022-03-15] MEDS: MULTIVIT,THER IRON,CA,FA & MIN 1 TABLET PO SCH (09:00)
[2022-03-15] MEDS: FOLIC ACID 1 MG TABLET PO SCH (09:00)
[2022-03-15] MEDS: DOCUSATE SODIUM 100 MG CAPSULE PO SCH ×2 (09:00→22:36)
[2022-03-15] MEDS: METOPROLOL SUCCINATE 25 MG TAB.XL.24H PO SCH (09:01)
[2022-03-15] MEDS: DULoxetine 30 MG CAPSULE PO SCH (09:01)
[2022-03-15] MEDS: THIAMINE 100 MG in 0.9 % SODIUM CHLORIDE 50 ML IV SCH (09:02)
[2022-03-15] MEDS: ASPIRIN 81 MG TAB.CHEW CHEWED SCH ×2 (09:02→22:35)
[2022-03-16] MEDS: 0.9 % SODIUM CHLORIDE 10 ML SYRINGE IV SCH (04:29)
[2022-03-16] MEDS: HYDROcodone/APAP 5/325MG TABLET PO PRN ×2 (04:46→09:41)
[2022-03-16] MEDS: PANTOPRAZOLE 40 MG VIAL IV SCH (07:15)
[2022-03-16] MEDS: MULTIVIT,THER IRON,CA,FA & MIN 1 TABLET PO SCH (08:51)
[2022-03-16] MEDS: DULoxetine 30 MG CAPSULE PO SCH (08:51)
[2022-03-16] MEDS: ASPIRIN 81 MG TAB.CHEW CHEWED SCH (08:52)
[2022-03-16] MEDS: METOPROLOL SUCCINATE 25 MG TAB.XL.24H PO SCH (08:52)
[2022-03-16] MEDS: DOCUSATE SODIUM 100 MG CAPSULE PO SCH (08:52)
[2022-03-16] MEDS: FOLIC ACID 1 MG TABLET PO SCH (08:52)
[2022-03-16] MEDS ORDERED: THIAMINE 100 MG TABLET PO SCH (09:00)
--- NOTE | 2022-03-16 12:45 | Discharge Summary ---
Discharge Provider Provider IMPORTANT FOLLOW-UP INFORMATION FOR PCP: Patient information: Note initiated : 03/16/22 at 12:44 pm Service Date, if different from initiated Date: [] Patient: Lyndsay Gonzalez 62 y/o F admitted on 03/13/22 for lt hip pain. Chief Complaint: [] Date of admission: 03/13/22 09:02 Discharge date: 03/16/22 Primary care physician: JERICHO Barron Consults: 03/13/22 Consult to Physician [CONS] Stat Comment: Left hip fracture Consulting Provider: Fly Weaver Reason For Exam: Physician to Consult Consult to Physician [CONS] Stat Comment: Left hip fracture Consulting Provider: Ruel Love Reason For Exam: Physician to Consult COURSE Hospital Course Hospital course: Ms. Gonzalez is a 62 year old F Who fell going to the bathroom. Crawled to the phone with for help complaining of left hip pain. She had been drinking as well. She was noted to be intoxicated in the ED. blood alcohol level in the ED 127. She fell and broke her right hip in June. Work-up in ED revealed left hip fracture. Dr. Weaver was contacted Patient is drinks she says only 3 times a week and has 2-3 drinks at a time which are usually Coke and run. 03/14 Patient feeling better today after surgery. Hip pain better. No alcohol withdrawal treatment needed. Sodium better today. 03/15 States legs sore and tight but otherwise pain relatively controlled. No benzo diazepam's needed for withdrawal. Patient heart rate appears to run chronically high, mildly. 03/16 Discharge to low [facility] rehab at a [facility] facility. Discharge diagnosis: Left intertrochanteric hip fracture Time Spent with Patient Time attestation: Total time spent providing and/or coordinating discharge services: Time spent: Greater than 30 minutes EXAM Constitutional Vitals: Temp Pulse Resp BP Pulse Ox O2 Del Method O2 Flow Rate 97.7 F 93 H 18 135/73 96 1 03/16/22 07:18 03/16/22 07:18 03/16/22 07:18 03/16/22 07:18 03/16/22 07:18 03/16/22 07:18 03/14/22 16:00 Discharge Plan Patient/Caregiver Discharge Instructions Activity: increase activity as tolerated Diet: Regular Diet Prescriptions: New aspirin [Adult Low Dose Aspirin] 81 mg Tablet,Delayed Release (Dr/Ec) 81 mg PO BID Qty: 60 0RF Continued omeprazole 20 mg capsule,delayed release(DR/EC) 20 mg PO QDAY acetaminophen [Tylenol Extra Strength] 500 mg tablet 500 mg PO Q6H PRN (Reason: Headache) ondansetron 8 mg tablet,disintegrating 8 mg PO Q8H PRN (Reason: Nausea) duloxetine 60 mg capsule,delayed release(DR/EC) 60 mg PO QDAY Qty: 90 1RF potassium chloride 20 mEq/15 mL liquid 20 meq PO QDAY tramadol 50 mg tablet 50 mg PO Q6H PRN (Reason: Headache) metoprolol succinate 25 mg tablet extended release 24 hr 25 mg PO QDAY Qty: 90 0RF albuterol sulfate [Ventolin HFA] 90 mcg/actuation HFA aerosol inhaler 2 puff INHALATION Q4H PRN (Reason: Shortness Of Breath Or Wheezing) methocarbamol 750 mg Tablet 750 mg PO Q6HP PRN (Reason: Muscle Spasm) Qty: 30 0RF acyclovir 400 mg tablet 1 tab PO BID Follow Up Plan Follow up with: Cecilia Calderon ARNP [Primary Care Provider] - Patient Disposition: Xfer SNF Prognosis: Fair Rehab Potential: Fair I certify that the patient requires SNF services: Yes Overall status at discharge: patient is progressing back to baseline Discharge Orders: Discharge Order (Routine); Ordered 03/16/22 Ordered By: Cody TERRY VTE Deep Vein Thrombosis/Pulmonary Embolism Present on Admission: No
== END 2022-03-16 13:35 | DRG 481 ==
LOC: MEDSUR 01:13 → ED 01:13 → MEDSUR 07:19
PROVIDERS: ADMIT Internal Medicine; ATTEND Internal Medicine